=== PATIENT | male | born 1960 | race Caucasian/White ===

== ENCOUNTER → 2020-03-15 15:22 | Outpatient (CLI) | payer OTHER, SELFPAY | PROVIDERS: Family Provider Family Medicine; PCP Student in an Organized Health Care Education/Training Program; Referring Provider Student in an Organized Health Care Education/Training Program; Visit Provider Student in an Organized Health Care Education/Training Program | DX: M75.81 Other shoulder lesions, right shoulder (principal); Z53.20 Procedure and treatment not carried out because of patient's decision for unspecified reasons ==

== ENCOUNTER 2021-08-08 10:59 | Emergency (ER) | payer OTHER, SELFPAY ==
[2021-08-08 11:27] VITALS: BP 171/91; PULSE 63; RESP 18; TEMP 36.1; O2SAT 97; BMI 39.7
--- NOTE | 2021-08-08 11:31 | DI.RAD.S_ITS ---
PROCEDURE: XR CHEST 2V INDICATIONS: +COVID, Increase SOB TECHNIQUE: 2 views of the chest were acquired. COMPARISON: None. FINDINGS: Surgical changes and devices: None. Lungs and pleura: Lungs are clear. No pleural effusions or pneumothorax. Mediastinum: Mediastinal contours are normal. Heart size is normal. Bones and chest wall: No suspicious bony abnormalities. Soft tissues appear unremarkable. IMPRESSION: No acute cardiopulmonary disease process. Dictated by: Shahla Amaya MD, PhD on 08/08/2021 at 12:54 Approved by: Shahla Amaya MD, PhD on 08/08/2021 at 12:54
--- NOTE | 2021-08-08 14:01 | ED_ITS ---
HPI - SOB/Dyspnea General Chief Complaint: Shortness of Breath/Dyspnea Stated Complaint: COVID+ 7 days ago, trouble breathing Time Seen by Provider: 08/08/21 14:01 Source: patient Mode of arrival: Ambulatory History of Present Illness HPI Narrative: 61-year-old male former smoker with history of asthma presents with gradually worsening shortness of breath and dry hacking cough over the past few days. He states that he was diagnosed with COVID about 1 week ago. He denies any fever but has had some chills. He has had no runny nose but a little bit of sore throat. He is not dizzy nor weak or lightheaded. He denies any hemoptysis or productive sputum. He has had no GI symptoms such as nausea, vomiting or diarrhea. He is not vaccinated Related Data Home Medications Medication Instructions Recorded Confirmed hydrochlorothiazide 50 mg tablet 50 mg PO DAILY 07/14/20 04/18/21 losartan 100 mg tablet 100 mg PO DAILY 07/14/20 04/18/21 metoprolol tartrate 100 mg tablet 100 mg PO DAILY 07/14/20 04/18/21 Previous Rx's Medication Instructions Recorded albuterol sulfate 90 mcg/actuation 2 inh INHALATION Q4H PRN #1 each 08/08/21 breath activated powder inhaler benzonatate 200 mg capsule 200 mg PO BID PRN #20 cap 08/08/21 prednisone 10 mg tablet See Rx Instructions .ROUTE 08/08/21 .COMPLEX #30 tab Allergies Allergy/AdvReac Type Severity Reaction Status Date / Time amoxicillin [From AUGMENTIN] Allergy Unknown Verified 08/08/21 11:31 clavulanic acid Allergy Unknown Verified 08/08/21 11:31 [From AUGMENTIN] erythromycin base Allergy Unknown Verified 08/08/21 11:31 [ERYTHROMYCIN BASE] Review of Systems Review of Systems Narrative: GENERAL: See HPI HEENT: See HPI RESPIRATORY: See HPI CARDIOVASCULAR: Denies chest pain, palpitations, orthopnea, edema, GASTROINTESTINAL: Denies nausea, vomiting, abdominal pain, diarrhea, constipation, melena. : Denies dysuria, frequency, incontinence, hematuria, urinary retention. MUSCULOSKELETAL: denies weakness, joint pain, or bony pain SKIN: Denies rash, skin lesions, or other NEUROLOGIC: Denies weakness, headache, numbness, change in speech, confusion, seizures, incoordination. PSYCHIATRIC: No concerning psychosocial issues. 12 point review of systems is negative except for those stated above Patient History Medical History Abscess of anal or rectal region (05/24/03) ADHD, predominantly inattentive type Chronic sinusitis, unspecified (07/06/02) Excessive daytime sleepiness Hypertension Insomnia with sleep apnea, unspecified Joint pain of ankle and foot (09/06/03) Obesity (BMI 30-39.9) Obstructive sleep apnea syndrome Family History Grandfather Hypertension Snoring Diabetes mellitus Father Diabetes mellitus Hypertension Snoring Substance abuse Social History Smoking Status: Former smoker Smoking Status: Former smoker Substance Use Type: does not use Exam Narrative Exam Narrative: GENERAL: [61] year old patient appears stated age. Well-developed patient, in mild distress. HEAD: Atraumatic. Normocephalic. EYES: Pupils equal round and reactive. Extraocular motions intact. No scleral icterus. No injection or drainage. ENT: Nose without bleeding, purulent drainage. Throat without erythema, tonsillar hypertrophy or exudate. Airway patent. NECK: Trachea midline. Non tender CARDIOVASCULAR: Regular rate and rhythm without murmurs, gallops, or rubs. RESPIRATORY: Clear to auscultation. Breath sounds equal bilaterally. No wheezes, rales, or rhonchi. GASTROINTESTINAL: Abdomen soft, non-tender, nondistended. EXTREMITIES: No edema or joint tenderness. BACK: Nontender without deformity or crepitance. No flank tenderness. NEURO: AOx3. SKIN: No rash or erythema of visible areas Initial Vital Signs Initial Vital Signs: Vital Signs Temperature 96.9 F L 08/08/21 11:27 Pulse Rate 63 08/08/21 11:27 Respiratory Rate 18 08/08/21 11:27 Blood Pressure 171/91 H 08/08/21 11:27 Pulse Oximetry 97 08/08/21 11:27 Course Orders Ordered: ED Orders 08/08/21 11:31 XR chest 2V Stat Vital Signs Vital signs: Vital Signs - 8 hr 08/08/21 11:27 Temperature 96.9 F L Pulse Rate 63 Respiratory Rate 18 Blood Pressure 171/91 H Pulse Oximetry 97 MDM - SOB/Dyspnea Imaging Data Chest x-ray: Radiologist's Impression: Launch?[address] [address] XRay Report Signed Patient: Norman Leija MR#: [id number] : 1960 Acct:[id number] Age/Sex: 61 / M Date of Service: 08/08/21 Loc: ED Accession Number: [id number] ?? Procedure: XR chest 2V Ordering Provider: Wilmer Murphy D.O. PROCEDURE:? XR CHEST 2V ? INDICATIONS:? +COVID, Increase SOB ? TECHNIQUE:? 2 views of the chest were acquired.? ? COMPARISON:? None. ? FINDINGS:? ? Surgical changes and devices:? None.? ? Lungs and pleura:? Lungs are clear.? No pleural effusions or pneumothorax.? ? Mediastinum:? Mediastinal contours are normal.? Heart size is normal.? ? Bones and chest wall:? No suspicious bony abnormalities.? Soft tissues appear unremarkable.? ? IMPRESSION:? No acute cardiopulmonary disease process. ? ? Dictated by: Shahla Amaya MD, PhD on 08/08/2021 at 12:54 ? ? Approved by: Shahla Amaya MD, PhD on 08/08/2021 at 12:54 ? [facility] Narrative Medical decision making narrative: Patient has a very reassuring history and physical exam. He shows no signs of significant respiratory distress. He does have some mild wheeze, particularly harsh sound and cough with deep breath suggesting that he would respond to bronchodilators and that he likely has an asthma exacerbation as a consequence of his known COVID. He did not require supplemental oxygen and does not demonstrate need for a significant evaluation and certainly not hospitalization. He has been given extensive return precautions and questions have been answered to his apparent satisfaction Discharge Plan Departure Patient Disposition: Home Clinical Impression: COVID Instructions: DI for COVID-19 (Suspected or Confirmed ) Activity Restrictions/Additional Instructions: *You have been diagnosed with [ COVID-19] *What to do: * per recommendations from the CDC and the [facility] Department of Health * stay home except to get medical care. Restrict activities outside your home, except for getting medical care. Do not go to work, school, or public areas. Avoid using public transportation, ride sharing, or taxis. * separate yourself from other people in your home. * call ahead before visiting your doctor * Wear a facemask * Cover your coughs and sneezes * Clean your hands often * Avoid sharing household items * Clean all high-touch services every day * Monitor your symptoms and seek prompt medical attention if your illness is worsening, particularly with difficulty in breathing. You may discontinue your isolation when: 1. You have been fever-free for at least 24 hours without the use of fever reducing medication, AND 2. Your symptoms are getting better, AND 3. At least 5 days have passed since symptoms first appeared 4. If you have fever, continue to stay home until fever resolves Individuals with laboratory confirmed COVID-19 who have not had any symptoms may discontinue home isolation when at least 5 days have passed since the date of their first COVID-19 diagnostic test and have had no subsequent illness You should notifiy any friends and family that have been in close contact *If up to date on COVID Vaccines, then they do not need to quarantine unless symptoms develop. Get tested on day 5 (or sooner if symptoms develop). Take precautions and watch for symptoms until day 10 *If NOT up to date on COVID Vaccines, then CDC recommends quarantine for at least 5 full days. Wear a well fitted mask at home if you must be around others. If they develop symptoms they should get tested. If they remain asymptomatic they should get tested on day 5. They should take precautions and monitor for symptoms until day 10. We discussed, prescriptions have been sent to [facility] Prescriptions: New benzonatate 200 mg capsule 200 mg PO BID PRN (Reason: cough) Qty: 20 0RF albuterol sulfate 90 mcg/actuation aerosol powdr breath activated 2 inh INHALATION Q4H PRN (Reason: shortness of breath or wheezing) Qty: 1 0RF Rx Instructions: administer with spacer prednisone 10 mg tablet See Rx Instructions .ROUTE .COMPLEX Qty: 30 0RF Rx Instructions: Day 1,2,3: 40mg PO Daily Day 4,5,6: 30mg PO Daily Day 7,8,9: 20mg PO Daily Day 10,11,12: 10mg PO Daily #30 No Action metoprolol tartrate 100 mg tablet 100 mg PO DAILY 0RF hydrochlorothiazide 50 mg tablet 50 mg PO DAILY 0RF losartan 100 mg tablet 100 mg PO DAILY 0RF Referrals: Nohemy Hewitt MD [Primary Care Provider] -
[2021-08-08 14:40] VITALS: BP 158/62; PULSE 89; RESP 16; O2SAT 98
== END 2021-08-08 14:41 | disposition home or self-care (01) ==
PROVIDERS: Emergency Provider Emergency Medicine; PCP Student in an Organized Health Care Education/Training Program
DX: U07.1 COVID-19 (principal)
CPT/HCPCS: 71046; 99283

== ENCOUNTER → 2022-05-25 17:02 | Outpatient (CLI) | payer OTHER, SELFPAY ==
--- NOTE | 2022-05-25 17:04 | DI.RAD.S_ITS ---
PROCEDURE: XR ABDOMEN 1V INDICATIONS: R10.9 TECHNIQUE: One view of the abdomen acquired. COMPARISON: None. FINDINGS: Surgical changes and devices: None. Bowel: Air is seen within the colon. There is relative paucity of bowel gas throughout the remainder of the abdomen. Soft tissues: No suspicious abdominal calcifications. Visualized solid organ contours appear normal in size. Bones: No suspicious bony lesions. Degenerative changes are seen in the spine. IMPRESSION: Nonspecific bowel-gas pattern without definite signs of obstruction. However there is a relative paucity of bowel gas in the small bowel. If symptoms persist, further evaluation could be obtained with CT of the abdomen and pelvis Approved by: Darrin Reyes M.D. on 05/25/2022 at 21:44
== END ==
PROVIDERS: Referring Provider Family Medicine; Visit Provider Family Medicine
DX: R10.9 Unspecified abdominal pain (principal)
CPT/HCPCS: 74018

== ENCOUNTER → 2022-06-26 11:14 | Outpatient (CLI) | payer OTHER, SELFPAY ==
[2022-06-26 11:54] LABS: COVID19 -Nasal RAPID Negative (Negative)
== END ==
PROVIDERS: PCP Internal Medicine; Visit Provider Surgery
DX: Z01.812 Encounter for preprocedural laboratory examination (principal); Z20.822 Contact with and (suspected) exposure to COVID-19
CPT/HCPCS: 87635

== ENCOUNTER 2022-06-26 13:05 | Day surgery (SDC) | payer OTHER, SELFPAY ==
--- NOTE | 2022-06-26 | PATH_ITS ---
[facility] Accession Number: [id number] . 01 Material submitted: . sigmoid colon - SIGMOID COLON POLYP . 01 Diagnosis: Sigmoid Colon, Polyp, Biopsy: Tubular adenoma. [facility] 06/28/2022 1130 Local . 01 Electronically signed: . Misa Bucio MD, Pathologist NPI- [id number] . 01 Gross description: . SIGMOID COLON POLYP: Received in formalin is 1 fragment(s) of urbano, soft tissue measuring 0.7 x 0.5 x 0.2 cm submitted entirely in 1 cassette(s) /CPE 06/27/2022 0856 Local . 01 Pathologist provided ICD-10: D12.5 . 01 CPT . 771557 Specimen Comment: A courtesy copy of this report has been sent to [phone] Performed at: 01 [facility] [address] [place] [address] [id number] MD Miguel Castaneda MD Phone: [phone]
[2022-06-26 14:13] VITALS: BP 172/99; PULSE 92; RESP 16; TEMP 36.6; O2SAT 98; BMI 38.4
[2022-06-26] MEDS: LACTATED RINGERS 1,000 ML 200 ML IV (14:33)
--- NOTE | 2022-06-26 15:09 | PM.HP.1 ---
History of Present Illness History of Present Illness Date Patient Seen: 06/26/22 Time Patient Seen: 15:09 Chief complaint: SCREENING COLONOSCOPY Narrative: The patient presents for colorectal screening. Personal history of colonic polyps, last colonoscopy 5 years ago normal. No personal or family history of colon cancer. On further history denies any recent gastrointestinal symptoms. No nausea, vomiting, abdominal pain, loss of appetite, unexplained weight loss, change in bowel habits, diarrhea, constipation, melena, hematochezia, or bright red blood per rectum. Patient History Medical History Abscess of anal or rectal region (05/24/03) ADHD, predominantly inattentive type Chronic sinusitis, unspecified (07/06/02) Excessive daytime sleepiness Hypertension Insomnia with sleep apnea, unspecified Joint pain of ankle and foot (09/06/03) Obesity (BMI 30-39.9) Obstructive sleep apnea syndrome Family & Social History Family History Grandfather Hypertension Snoring Diabetes mellitus Father Diabetes mellitus Hypertension Snoring Substance abuse Social History: household members none Tobacco & Substance use: Smoking Status Former smoker alcohol intake never Substance Use Type marijuana Meds Home Medications and Allergies Home Medications Medication Instructions Recorded Confirmed Type hydrochlorothiazide 50 mg tablet 50 mg PO DAILY 07/14/20 06/26/22 History losartan 100 mg tablet 100 mg PO DAILY 07/14/20 06/26/22 History metoprolol tartrate 100 mg tablet 100 mg PO DAILY 07/14/20 06/26/22 History albuterol sulfate 90 mcg/actuation 2 inh inhalation Q4H PRN shortness 08/08/21 06/26/22 Rx breath activated powder inhaler of breath or wheezing #1 ea terazosin 1 mg capsule 1 mg DAILY 06/26/22 06/26/22 History Allergies Allergy/AdvReac Type Severity Reaction Status Date / Time amoxicillin [From AUGMENTIN] Allergy Unknown Verified 04/18/22 16:08 clavulanic acid Allergy Unknown Verified 04/18/22 16:08 [From AUGMENTIN] erythromycin base Allergy Unknown Verified 04/18/22 16:08 [ERYTHROMYCIN BASE] Exam Vital Signs (past 8 hours): - 06/26/22 14:13 Temperature 97.8 F Pulse Rate 92 H Respiratory Rate 16 Blood Pressure 172/99 H Pulse Oximetry 98 Oxygen Delivery Method Room Air Oxygen Delivery Method Room Air Narrative Exam Narrative: General adult man alert oriented no acute distress Abdomen soft nontender nondistended Assessment & Plan Assessment & Plan narrative: The patient requires colorectal screening and colonoscopy is recommended. Technical details were discussed. Risks, benefits, alternatives explained. Risks including but not limited to myocardial infarction, aspiration, bleeding, pain, missed lesion, incomplete examination, need for further radiographic studies, colonic perforation, and need for major abdominal surgery were discussed. All questions were answered to their satisfaction, and they are in agreement with this plan. Time Spent With Patient Critical Care time: I spent a total of [] minutes of critical care time on this patient's care today; this time is exclusive of procedural time.
--- NOTE | 2022-06-26 15:10 | PM.OP.COLON ---
Operative Date/Time/Diagnoses Date of procedure: 06/26/22 Time of procedure: 15:11 Pre-op diagnosis: Screening colonoscopy Post-op diagnosis: same Procedure & Clinicians Study performed: Colonoscopy Same procedure as scheduled: Yes Indications: Colorectal screening Surgeon: Chetan Doty Procedure Notes Procedure in detail: The history and physical was performed/updated and the patient is ASA class is 3. The procedure was discussed in detail with the patient. Potential risks complications including infection, bleeding, missed diagnosis, perforation, need for surgery, and were explained. Their questions were answered and informed consent was obtained. Patient was brought to the procedure room and placed standard monitoring equipment. The patient's vital signs were monitored continuously throughout the entire procedure. Prior to starting time-out was performed. The patient was placed in the left lateral recumbent position. Procedural sedation was administered by anesthesia. Examination began with a thorough inspection of the perianal area there was no evidence of fissures, fistulae, external hemorrhoids or cutaneous malignancy. The colonoscopy scope was then placed into the anal canal and was advanced to the cecum, which was identified by the ileocecal valve, the appendiceal orifice and the confluence of the taenia. The scope was then slowly withdrawn examining colon thoroughly in all directions, irrigating it of any residual stool. FINDINGS 1. Sigmoid colon-8 mm pedunculated polyp removed with cold snare in its entirety 2. Remainder of the colon was unremarkable The patient tolerated the procedure well. They will be discharged once criteria are met. The prep was of good/excellent quality. The withdrawl time was 6 minutes. Specimen(s): other (Sigmoid colon polyp) Impression: Colonic polyp Post-procedure Recommendations: High fiber diet Plan for aftercare: Follow-up is dependent on pathology findings Disposition: same day surgery
[2022-06-26 15:34] VITALS: BP 148/88; PULSE 71; RESP 15; TEMP 36.4; O2SAT 96
[2022-06-26 15:39] VITALS: BP 149/92; PULSE 71; RESP 17; O2SAT 96
[2022-06-26 15:43] VITALS: BP 157/89; PULSE 68; RESP 18; O2SAT 94
[2022-06-26 16:00] VITALS: BP 148/93; PULSE 68; RESP 18; O2SAT 99
== END 2022-06-26 16:07 | disposition home or self-care (01) ==
PROVIDERS: PCP Family Medicine; Referring Provider Surgery; Visit Provider Surgery
PROC: 0DJD8ZZ Inspection of Lower Intestinal Tract, Via Natural or Artificial Opening Endoscopic (ICD-10-PCS; CPT 45378; principal; 2022-06-26 14:00)
DX: Z12.11 Encounter for screening for malignant neoplasm of colon (principal); Z20.822 Contact with and (suspected) exposure to COVID-19; G47.33 Obstructive sleep apnea (adult) (pediatric); I10 Essential (primary) hypertension; D12.5 Benign neoplasm of sigmoid colon; Z01.812 Encounter for preprocedural laboratory examination
CPT/HCPCS: 45385; 87635; C9803; J2704

== ENCOUNTER → 2022-10-31 13:01 | Outpatient (CLI) | payer OTHER, SELFPAY ==
--- NOTE | 2022-10-31 13:04 | DI.CT.S_ITS ---
PROCEDURE: CT ABDOMEN PELVIS WO CON INDICATIONS: Unspecified abdominal pain Right lower quadrant TECHNIQUE: After the administration of oral contrast, 5 mm thick sections acquired from the diaphragms to the symphysis. 5 mm coronal and sagittal reformats were performed. For radiation dose reduction, the following was used: automated exposure control, adjustment of mA and/or kV according to patient size. COMPARISON: [facility], , CT KUB, 09/10/2005, 18:45. FINDINGS: ABDOMEN: Lung bases: No pleural effusion Solid organs: Liver is normal in size. Subcentimeter hypodensity in the posterior right hepatic lobe is too small to characterize. Gallbladder is unremarkable . Pancreas is normal in size. Spleen is normal in size. No adrenal nodules. 1.1 cm mildly hyperdense nodule left superior kidney (2/28), indeterminate, in the region of a previously visualized cortical cyst. Nonobstructing 7 mm stone right inferior kidney. No hydroureteronephrosis bilaterally. Peritoneum and bowel: No bowel obstruction. No evidence of acute appendicitis. No free air or substantial free fluid. Nodes and vessels: No retroperitoneal or mesenteric adenopathy by size criteria. Aorta and inferior vena cava are normal in size. Miscellaneous: Tiny fat containing periumbilical hernia. PELVIS: Genitourinary: Bladder wall thickness is normal. Miscellaneous: No adenopathy. Bilateral fat containing inguinal hernias, right larger than left. Bones: Multilevel degenerative change of the visualized spine. IMPRESSION: 1. No definite acute appearing abnormality identified within the abdomen or pelvis. 2. Bilateral fat containing inguinal hernias, right larger than left. 3. Nonobstructing right kidney stone. No hydroureteronephrosis bilaterally. 4. Indeterminate 1.1 cm structure at the left upper kidney, possible hyperdense/proteinaceous cyst, region of cortical scarring, or solid mass. Further evaluation is recommended, could consider renal ultrasound to assess if this finding is cystic versus solid or renal protocol MRI or CT. Dictated by: Darrin Culp M.D. on 10/31/2022 at 18:23 Approved by: Darrin Culp M.D. on 10/31/2022 at 18:31
== END ==
PROVIDERS: PCP Family Medicine; Referring Provider Family Medicine; Visit Provider Family Medicine
DX: K40.20 Bilateral inguinal hernia, without obstruction or gangrene, not specified as recurrent (principal); N20.0 Calculus of kidney; R10.31 Right lower quadrant pain; R10.32 Left lower quadrant pain
CPT/HCPCS: 74176

== ENCOUNTER → 2023-03-13 10:47 | Outpatient (CLI) | payer OTHER, SELFPAY ==
--- NOTE | 2023-03-13 | DI.RAD.S_ITS ---
PROCEDURE: XR LUMBAR SPINE 2-3V INDICATIONS: BACK PAIN TECHNIQUE: 3 views of the lumbar spine were acquired. COMPARISON: [facility], CT, CT ABDOMEN PELVIS WO CON, 10/31/2022, 14:53. FINDINGS: Bones: 5 [id number] vertebrae are present. Right convexity curvature lumbosacral spine centered at L5. No lumbar vertebral body compression fracture identified. Moderate multilevel degenerative changes with disc height loss, endplate spurring, and facet arthropathy. Soft tissues: Overlying bowel gas pattern is normal. No suspicious soft tissue calcifications. IMPRESSION: Multilevel degenerative changes of the lumbar spine. Dictated by: Darrin Culp M.D. on 03/13/2023 at 15:03 Approved by: Darrin Culp M.D. on 03/13/2023 at 15:05
== END ==
PROVIDERS: PCP Family Medicine; Referring Provider Family Medicine; Visit Provider Family Medicine
DX: M47.26 Other spondylosis with radiculopathy, lumbar region (principal); M62.830 Muscle spasm of back
CPT/HCPCS: 72100

== ENCOUNTER → 2023-04-01 12:30 | Outpatient (CLI) | payer OTHER, SELFPAY ==
--- NOTE | 2023-04-01 | DI.MRI.S_ITS ---
PROCEDURE: MR LUMBAR SPINE WO CON INDICATIONS: Radiculopathy, lumbosacral region TECHNIQUE: Noncontrast sagittal T1 spin echo and T2 fast echo, sagittal STIR, and T2 fast spin echo through the lumbar spine. In cases with scoliosis, additional coronal T2 fast spin echo may be performed. COMPARISON: [facility], MR, L-SPINE WITHOUT CONTRAST, 03/30/2013, 16:02. FINDINGS: Image quality: Excellent. Alignment and Curvature: There is normal bony alignment. Bone Marrow: Marrow is of normal overall signal. No acute vertebral body compression fractures. Spinal Cord: Conus medullaris terminates at the L1 level. Visualized cord demonstrates normal signal and size. Paraspinous Soft Tissues: There are bilateral sub cm T2 hypointense cortical lesions within the kidneys. T2 hyperintense cortical lesions are also present suggesting the presence of renal cysts. T12-L1: Normal appearance. L1-L2: Mild disc bulge. Mild facet ligamentum flavum hypertrophy. No canal stenosis. No foraminal stenosis. Findings are unchanged from the MRI dated March 30, 2013. L2-L3: Mild disc desiccation. Broad-based disc bulge. Mild facet and ligamentum flavum hypertrophy. No canal stenosis. Mild right neural foraminal narrowing. Findings are unchanged from the prior study. L3-L4: Mild disc desiccation and height loss. Broad-based disc bulge. Moderate facet ligamentum flavum hypertrophy. There is a new 0.6 x 0.9 x 0.8 cm right paracentral disc protrusion. There is moderate canal stenosis. No neural foraminal stenosis. L4-L5: Moderate disc desiccation and height loss. Broad-based disc bulge. Moderate facet ligamentum flavum hypertrophy. No canal stenosis. Severe left and mild right neural foraminal stenosis. There is slightly increased left foraminal stenosis than on on the 2013 MRI. L5-S1: Disc height is preserved. Severe facet and ligamentum flavum hypertrophy. No canal stenosis. Moderate left foraminal stenosis. No right neural foraminal narrowing. Findings are similar to the 2013 study. IMPRESSION: 1. Right paracentral disc protrusion at L3-4 which is new when compared with the 2013 MRI. There is moderate resultant canal stenosis at this level. 2. Other findings are similar to the 2013 study including severe left foraminal stenosis at L4-5 and moderate left foraminal stenosis at L5-S1. No other significant canal stenosis or foraminal narrowing of the lumbar spine. Dictated by: Amber Vallecillo M.D. on 04/01/2023 at 14:05 Approved by: Amber Vallecillo M.D. on 04/01/2023 at 14:14
== END ==
PROVIDERS: PCP Family Medicine; Referring Provider Family Medicine; Visit Provider Family Medicine
DX: M54.17 Radiculopathy, lumbosacral region (principal); M51.26 Other intervertebral disc displacement, lumbar region; M48.061 Spinal stenosis, lumbar region without neurogenic claudication
CPT/HCPCS: 72148

== ENCOUNTER → 2023-04-16 11:22 | Outpatient (CLI) | payer OTHER, SELFPAY ==
--- NOTE | 2023-04-16 | DI.US.S_ITS ---
PROCEDURE: US RENAL COMPLETE INDICATIONS: BILATERAL RENAL CYSTS TECHNIQUE: Real-time scanning was performed of the kidneys and bladder, with image documentation. COMPARISON: None. FINDINGS: Kidneys: Kidneys are normal in size. Right kidney measures 12.5 cm long; left kidney measures 13.4 cm long. Right renal cortical thickness is 1.5 cm; left renal cortical thickness is 1.8 cm. Renal cortical echotexture is normal. No hydronephrosis . 7 and 6 mm nonobstructing stones are noted in right kidney. 9 and 12 mm nonobstructing stones are also seen in left kidney. No suspicious solid mass lesions. 2 cysts are noted in right kidney measures 1.0 x 1.0 x 0.9 cm and 1.6 x 1.5 x 1.5 cm in size. 4 small cysts are noted in left kidney measures up to 1.9 x 2 x 1.7 cm and 1.9 x 1.8 x 1.9 cm in size. Bladder: Pre-void bladder volume is 534.2 mL. Post-void residual is 0 mL. Pre-void images demonstrate no intraluminal masses or stones. On pre-void images, bilateral ureteral jets are noted with color Doppler interrogation. (Of note, ureteral jets may not be detectable in up to 25% of cases due to insufficient differences in specific gravity between ureteral and bladder urine). Miscellaneous: No free pelvic fluid. IMPRESSION: 1. Bilateral nonobstructing renal calculi and bilateral simple appearing renal cysts as above. No solid appearing renal lesion. No hydronephrosis. 2. Normal appearing urinary bladder. Dictated by: Tutu An M.D. on 04/16/2023 at 21:56 Approved by: Tutu An M.D. on 04/16/2023 at 22:06
== END ==
PROVIDERS: PCP Family Medicine; Referring Provider Family Medicine; Visit Provider Family Medicine
DX: N28.1 Cyst of kidney, acquired (principal); N20.0 Calculus of kidney
CPT/HCPCS: 76770

== ENCOUNTER 2023-05-02 12:52 | Outpatient (CLI) | payer OTHER, SELFPAY ==
[2023-05-02] VITALS (8 sets, daily range): BP systolic 168–204; BP diastolic 80–108; PULSE 56–76; RESP 12–22; TEMP 35.9; O2SAT 97–100
--- NOTE | 2023-05-02 | DI.US.S_ITS ---
PROCEDURE: US PERIPH VENOUS LOW EXTREM LT INDICATIONS: LEFT LOWER EXTREMITY EDEMA TECHNIQUE: Real-time imaging, as well as color and pulse Doppler interrogation, were performed of the lower extremity deep veins from the inguinal ligament to the popliteal fossa, with documentation of the visualized calf veins. COMPARISON: None. FINDINGS: The common femoral, femoral, popliteal, and the visualized calf veins are normally compressible, and free of intraluminal thrombus. Color and pulse Doppler demonstrate normal phasic intraluminal flow. There is normal augmentation response to distal compression maneuver. Complex Emery cyst. IMPRESSION: No evidence of deep vein thrombosis involving the left lower extremity. Dictated by: Shahla Amaya MD, PhD on 05/02/2023 at 16:16 Approved by: Shahla Amaya MD, PhD on 05/02/2023 at 16:16
--- NOTE | 2023-05-02 12:53 | DI.RAD.S_ITS ---
PROCEDURE: PAIN L/S TRANSFORAMINAL INJECT INDICATIONS: SPONDYLOSIS COMPARISON: None. FINDINGS: Fluoroscopic spot filming was performed to verify placement of spinal needles at the right L3-L4 neural foramen level(s), as labeled on the films. Appropriate location(s) of the needle tip(s) was confirmed by injection of iodinated contrast. IMPRESSION: Access needle at the right L3-L4 neural foramen for transforaminal epidural steroid injection. Dictated by: Shahla Amaya MD, PhD on 05/02/2023 at 14:35 Approved by: Shahla Amaya MD, PhD on 05/02/2023 at 14:35
[2023-05-02] MEDS: MIDAZOLAM 2 MG/2 ML VIAL IV (13:43)
[2023-05-02] MEDS: BETAMETHASONE 30 MG/5 ML MDV 6 MG INJ (13:46)
[2023-05-02] MEDS: iopamidoL 15 ML VIAL 3 ML INJ (13:46)
[2023-05-02] MEDS: BUPIVACAINE 0.25% (PF) VIAL 2 ML INJ (13:46)
[2023-05-02] MEDS: DEXAMETHASONE 10 MG/ML VIAL INJ (13:47)
--- NOTE | 2023-05-02 13:54 | PC.NURSE ---
Patient checked in for scheduled lumbar injection. BP elevated 218/100 and 193/78. Patient reports he took all his BP medications last PM. He would usually take some at noon but is trialling them at night time. Significant LLE edema up to the thigh was also noted. Patient reports this has been going on for approximately a week with consistent progression. Denies pain or tenderness to LLE. Reports baseline SOB unworsened. Patient supposedly saw his PCP last week. Dr. Rowland made aware of above prior to procedure. US ordered and will coordinate to get that completed prior to discharge.
--- NOTE | 2023-05-02 13:58 | P.PCN_ITS ---
Date/Time/Diagnoses Date of procedure: 05/02/23 Time of procedure: 13:58 Pre-procedure diagnosis: 1. FORAMINAL STENOSIS WITH LE SYMPTOMS Post-procedure diagnosis: same Procedure Notes Procedure: 1. FLUOROSCOPICALLY GUIDED CONTRAST CONTROLLED TRANSFORAMINAL EPIDURAL STEROID INJECTION - RIGHT L3/4 TFESI Indications: Norman is referred by Dr. Shultz for treatment of Foraminal Stenosis with right LE Symptoms Physician: Rakesh Rowland Total Fluoroscopy time (seconds): 10 Total sedation minutes: 12 Complications: none Procedure in detail & Post-procedure care: FINDINGS Foraminal Nerve Root Compression secondary to disc disease and facet hypertrophy DESCRIPTION OF PROCEDURE Following review of allergy and review of potential side effects and complications, including, but not necessarily limited to, infection, allergic reaction, local tissue breakdown, stroke, temporary or permanent nerve injury, paralysis, and possible , the patient indicated that the patient understood and agreed to proceed. An informed consent document was signed by the patient, witnessed by a nurse, and placed in the patient's chart. Additionally, other treatment options including medications, modalities, and physical therapy were reviewed with the patient. After review of previous anaesthesic history and IV conscious sedation the patient was deemed safe to proceed with today?s procedure with IV conscious sedation as ASA class II designation. Safety time-out was performed to confirm patient ID, procedure to be performed and site of procedure. IV sedation was accomplished with a combination of 2mg of Versed was administered by the RN after DO order, titrated to patient comfort during the course of the procedure while the patient remained responsive to all verbal commands In the prone position following sterile prep and drape of the lumbar region, the right L3/4 posterior neuroforamen was identified fluoroscopically. The skin was anesthetized via a 25-gauge 1.5-inch needle with 1% lidocaine solution. At this point, a 25-gauge 3.5-inch spinal needle was atraumatically introduced and advanced under fluoroscopic guidance through the posterior right L3/4 neuroforamen to approximately the anterior aspect of the canal. Depth was confirmed on lateral view. Following negative aspiration, injection of approximately 1.5 cc of Isovue 200 under live fluoroscopy in the AP view confirmed excellent flow along the nerve root, into the epidural space without vascular or intrathecal uptake observed Radiological data, including multiple fluoroscopic views of the lumbosacral s pine, reveal a spinal needle at the right L3/4 posterior neuroforamen. Subsequent views show flow of contrast material flowing superiorly and inferiorly along the nerve root confirming epidural flow. Subsequently, a test dose of 1.5 cc of 1% lidocaine solution was administered and patient was observed for two minutes for signs or symptoms of complications, including abdominal pain, shortness of breath, bilateral upper or lower extremity weakness, nausea and vomiting, prior to steroid injection. At this point, a total of 2cc or 10mg of dexamethasone and 6mg of betamethasone was injected without incident. The patient tolerated the procedure well without signs or symptoms of complications prior to transfer to the recovery area continued monitoring without incident. The patient was then transferred to the recovery area where they were observed for an appropriate time after the injection. The patient reported a VAS score of 7 prior to the procedure and a post-procedure VAS of 0. POST OP INSTRUCTIONS The patient was provided a Pain Log to continue to record their response to the target-specific procedure prior to follow-up visit with their referring physician. Additionally, specific post-injection care instructions and a contact number to our office were provided if concerns arise regarding possible complications associated with the procedure are suspected.
--- NOTE | 2023-05-02 15:23 | PC.NURSE ---
Upon return from procedure patient with 5/10 pain to RLE, unable to bear weight. 1325 patient finally able to walk comfortably and safely without assistance. Awaiting US of LLE prior to discharge.
== END 2023-05-02 16:13 | disposition home or self-care (01) ==
PROVIDERS: PCP Family Medicine; Referring Provider Physical Medicine & Rehabilitation; Visit Provider Physical Medicine & Rehabilitation
DX: M48.061 Spinal stenosis, lumbar region without neurogenic claudication (principal); M51.16 Intervertebral disc disorders with radiculopathy, lumbar region; M47.26 Other spondylosis with radiculopathy, lumbar region; R60.0 Localized edema
CPT/HCPCS: 64483; 93971; 99152; J0702; J1100; J2250; J3490

== ENCOUNTER 2023-07-30 13:45 | Outpatient (RCR) | payer OTHER, SELFPAY ==
--- NOTE | 2023-06-05 16:00 | PT.OIE ---
Current Diagnoses Lumbago with sciatica, right side (06/05/23) Synovial cyst of popliteal space [Emery], left knee (06/05/23) Abnormal posture (06/05/23) Weakness (06/05/23) Past Medical History (Last Updated 05/02/23 @ 13:38 by Rakesh Rowland DO) Abscess of anal or rectal region (05/24/03) ADHD, predominantly inattentive type Chronic sinusitis, unspecified (07/06/02) Edema of left lower extremity Excessive daytime sleepiness Herniated nucleus pulposus, L3-4 right Hypertension Insomnia with sleep apnea, unspecified Joint pain of ankle and foot (09/06/03) Lumbar stenosis with neurogenic claudication Obesity (BMI 30-39.9) Obstructive sleep apnea syndrome Visit Care Team Role Provider Type Guilherme Shultz MD Attending Provider Physician Family Provider Primary Care Provider Referring Provider Specialty: Family Practice Address: [facility] [place], [facility] Email: [email or web address] Physical Therapy Initial Evaluation PT-OP-A Visit Information Start: 06/05/23 13:01 Freq: Status: Active Protocol: Document 06/05/23 13:09 [facility] (Rec: 06/05/23 13:45 [facility] [id number]) Out-Patient Physical Therapy Visit Information Visit Information Visit Type Initial Evaluation Visit Start Time 13:10 Visit Stop Time 14:00 Total Visit Minutes 50 Visit Number 1 Evaluation Information Evaluation Date 06/05/23 PT-OP-B Current Condition Start: 06/05/23 13:01 Freq: Status: Active Protocol: Document 06/05/23 13:09 [facility] (Rec: 06/05/23 13:45 [facility] [id number]) Current Condition History of Current Condition Onset Date December 2022 Current Complaints right sided back pain, and left knee pain History of Current Condition 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 Onset right sided back pain and reports knee swelling onset same time, was diagnosed as Emery's cyst and was told to wear compression stocking (wearing knee high; patient advised to obtain thigh high compression stocking so compression is over the knee.) Using ice, Ibuprofen, and Gabapentin, some stretching. Has cane but hasn't used. radicular symptoms outside of right leg to lateral right calf. States can't do anything. Prior Treatments and Tests x-ray : multilevel degenerative changes MRI: IMPRESSION: 1. Right paracentral disc protrusion at L3-4 which is new when compared with the 2013 MRI. There is moderate resultant canal stenosis at this level. 2. Other findings are similar to the 2013 study including severe left foraminal stenosis at L4-5 and moderate left foraminal stenosis at L5-S1. No other significant canal stenosis or foraminal narrowing of the lumbar spine. injection in lumbar L34 May 06,not helpful. Future Testing and Treatments Planned Sees Dr. Urbano tomorrow, may discuss surgery. Treatment Goals Patient/Caregiver Goals minimize pain and return to usual activities PT-OP-J Posture/Palpation/Skin Start: 06/05/23 13:01 Freq: Status: Active Protocol: Document 06/05/23 13:09 [facility] (Rec: 06/05/23 13:45 [facility] [id number]) Posture Evaluation Position Standing T-Spine Posture Rotation Right L-Spine Posture Shifted Right Knee Posture (L) Genu Valgus Ankle/Foot Posture (L) Pronated,(R) Pronated Comments Posture Comments hips shifted right, compensates with right sidebending. In sitting, leans to right. Palpation Assessment Location lumbar spine Palpation Findings Soft Tissue Tightness,Spasm, Tenderness left knee Palpation Findings Edema,Tenderness PT-OP-K Range of Motion Start: 06/05/23 13:01 Freq: Status: Active Protocol: Document 06/05/23 13:09 [facility] (Rec: 06/05/23 13:45 [facility] [id number]) Lumbar Spine Range of Motion Lumbar Spine Active ROM Limitations Pain Comments mod dec all motions Hip Goniometric Range of Motion Hip Left Hip ROM WFL No Flexion w/Knee Flexed 110 Straight Leg Raise 45 Extension 0 Abduction 40 Internal Rotation 15 External Rotation 45 Right Flexion w/Knee Flexed 120 Straight Leg Raise 60 Extension 5 Abduction 25 Internal Rotation 20 External Rotation 45 Knee Goniometric Range of Motion Knee Left Knee ROM WFL No Flexion Active (degrees) 100 Extension Active (degrees) 12 Right Knee ROM WFL Yes Ankle and Foot Goniometric Range of Motion Ankle and Foot Left Dorsiflexion with Knee Flexed 5 Dorsiflexion with Knee Extended 0 Plantarflexion 55 Right Ankle/Foot ROM WFL Yes PT-OP-L Special Tests Start: 06/05/23 13:01 Freq: Status: Active Protocol: Document 06/05/23 13:09 [facility] (Rec: 06/05/23 13:45 [facility] [id number]) Special Tests Lumbar Spine Special Tests traction Test Results + dec symptoms right Straight Leg Raise Test Results + right Slump Test Results + Compression Test Results + Knee Special Tests Posterior Draw Test Results - Apley's Compression Test Results - Anterior Draw Test Results - PT-OP-M Strength Start: 06/05/23 13:01 Freq: Status: Active Protocol: Document 06/05/23 13:09 [facility] (Rec: 06/05/23 13:45 [facility] [id number]) Cervical Spine Strength Cervical Spine Manual Muscle Testing Flexion (C1-2) 3+ Fair+ Trunk Strength Trunk Manual Muscle Testing Extension 3+ Fair+ Hip Strength Hip Manual Muscle Testing Left Flexion (L2) 3- Fair- Extension (S1) 3- Fair- Abduction 3- Fair- Adduction 3+ Fair+ External Rotation 3+ Fair+ Internal Rotation 4- Good- Right Flexion (L2) 3+ Fair+ Extension (S1) 3+ Fair+ Abduction 3+ Fair+ Adduction 4- Good- External Rotation 3+ Fair+ Internal Rotation 4- Good- Knee Strength Knee Manual Muscle Testing Left Flexion (S2) 3- Fair- Extension (L3) 4+ Good+ Comments pain on left Right Flexion (S2) 4 Good Extension (L3) 4 Good Ankle/Foot Strength Ankle and Foot Manual Muscle Testing Left Dorsiflexion (L4) 4 Good Plantarflexion (S1) 4- Good- Right Dorsiflexion (L4) 4+ Good+ Plantarflexion (S1) 4+ Good+ Toe Strength Toe Manual Muscle Testing Left Great Toe Flexion 5 Normal Right Great Toe Flexion 4+ Good+ PT-OP-R Modalities Start: 06/05/23 13:01 Freq: Status: Active Protocol: Document 06/05/23 13:09 [facility] (Rec: 06/05/23 13:45 [facility] [id number]) Hot Pack/Cold Pack Treatment Cold Pack Location lumbar spine, left knee Patient Position Hooklying Treatment Duration (minutes) 10 PT-OP-T Assessment and Plan Start: 06/05/23 13:01 Freq: Status: Active Protocol: Document 06/05/23 13:09 [facility] (Rec: 06/05/23 13:45 [facility] [id number]) Physical Therapy Assessment Rehab Potential Rehabilitation Potential Good Evaluation Complexity Number of Personal Factors/Comorbidities 1-2 Number of Body Systems Impaired 3 Clinical Presentation at Evaluation Evolving Impairments Impairments Activity Tolerance,Functional Activities,Pain,Posture Goals Four Impairment weakness Short Term Goal (STG) patient to be instructed in HEP to support therapy activities to improve strength STG Duration 06/24/23 Penitentiary Goal (LTG) Patient to be independent and compliant with HEP and demonstrate improved strenth to at least 4+/5 all LE and trunk muscle groups for improved function Three Impairment Oswestry disability index score 64% Short Term Goal (STG) Decrease PAMELA score to no greater than 50% as measure of improved back health and activity tolerance STG Duration 07/25/23 Sign Poster Goal (LTG) Improve PAMELA score to no greater than 25% as measure of improved back health and acvitity tolerance Two Impairment activity tolerance Impairment LEFS score 36% Short Term Goal (STG) Improve LEFS score to at least 50% as measure of improved activity tolerance STG Duration 07/25/23 Sign Poster Goal (LTG) Improve LEFS score to at least 75% as measure of improved activity tolerance LTG Duration 09/04/23 One Impairment left knee pain and lumbar spine pain with radicular symptoms Impairment 8/10 on pain scale Short Term Goal (STG) decrease pain to no greater than 4/10 with ADL's STG Duration 07/25/23 Penitentiary Goal (LTG) Decrease pain to no greater than 2/10 with all usual activities LTG Duration 09/04/23 Assessment Summary Assessment Patient presents to PT with severe function-limiting low back pain with radicular symptoms into right lateral LE as well as pain left knee due to diagnosed Emery's cyst with significant swelling and loss of strength. His activity level is severely limited at this time. He has severe postural shift, and special tests of vertical spinal compression and SLR positive on the right, and patient reported significant decrease in spine and right LE symptoms with manual lumbar traction. Feel he will benefit from PT to decrease his pain, improve his alignment, provide patient educaiton for back protection and HEP. Physical Therapy Plan Frequency and Duration Frequency of Treatment 2x/Week Duration of treatment (weeks) 8 Plan of Care Start Date 06/05/23 Plan of Care End Date 02/13/23 Therapeutic Interventions Therapeutic Interventions Home Exercise Program,Manual Therapy,Self-Care/Home Management,Sensory Integration ,Soft Tissue Mobilization, Taping,Therapeutic Activities, Therapeutic Exercises Modalities Cold Pack/Ice Massage,Electric Stimulation,Hot Packs, Ultrasound Next Visit Focus/Plan Next Note Type Treatment Note Next Visit Plan Gentle ther ex for core stab, gentle ROM trunk and hips. Manual lumbar traction and consider Ortiz Home Traction unit trial. IFES with ice or heat as indicated.
--- NOTE | 2023-06-05 16:00 | PT.OPPOC ---
Physical, Occupational & Speech Therapy At [facility] Current Diagnoses Lumbago with sciatica, right side (06/05/23) Synovial cyst of popliteal space [Emery], left knee (06/05/23) Abnormal posture (06/05/23) Weakness (06/05/23) Visit Care Team Role Provider Type Guilherme Shultz MD Attending Provider Physician Family Provider Primary Care Provider Referring Provider Specialty: Family Practice Address: [facility] [place], [address] Email: [email or web address] Plan Of Care PT-OP-T Assessment and Plan Start: 06/05/23 13:01 Freq: Status: Active Protocol: Document 06/05/23 13:09 [facility] (Rec: 06/05/23 13:45 [facility] [id number]) Physical Therapy Assessment Rehab Potential Rehabilitation Potential Good Evaluation Complexity Number of Personal Factors/Comorbidities 1-2 Number of Body Systems Impaired 3 Clinical Presentation at Evaluation Evolving Impairments Impairments Activity Tolerance,Functional Activities,Pain,Posture Goals Four Impairment weakness Short Term Goal (STG) patient to be instructed in HEP to support therapy activities to improve strength STG Duration 06/24/23 Aircraft Seat Upholsterer Goal (LTG) Patient to be independent and compliant with HEP and demonstrate improved strenth to at least 4+/5 all LE and trunk muscle groups for improved function Three Impairment Oswestry disability index score 64% Short Term Goal (STG) Decrease PAMELA score to no greater than 50% as measure of improved back health and activity tolerance STG Duration 07/25/23 Aircraft Seat Upholsterer Goal (LTG) Improve PAMELA score to no greater than 25% as measure of improved back health and acvitity tolerance Two Impairment activity tolerance Impairment LEFS score 36% Short Term Goal (STG) Improve LEFS score to at least 50% as measure of improved activity tolerance STG Duration 07/25/23 Aircraft Seat Upholsterer Goal (LTG) Improve LEFS score to at least 75% as measure of improved activity tolerance LTG Duration 09/04/23 One Impairment left knee pain and lumbar spine pain with radicular symptoms Impairment 8/10 on pain scale Short Term Goal (STG) decrease pain to no greater than 4/10 with ADL's STG Duration 07/25/23 Aircraft Seat Upholsterer Goal (LTG) Decrease pain to no greater than 2/10 with all usual activities LTG Duration 09/04/23 Assessment Summary Assessment Patient presents to PT with severe function-limiting low back pain with radicular symptoms into right lateral LE as well as pain left knee due to diagnosed Emery's cyst with significant swelling and loss of strength. His activity level is severely limited at this time. He has severe postural shift, and special tests of vertical spinal compression and SLR positive on the right, and patient reported significant decrease in spine and right LE symptoms with manual lumbar traction. Feel he will benefit from PT to decrease his pain, improve his alignment, provide patient educaiton for back protection and HEP. Physical Therapy Plan Frequency and Duration Frequency of Treatment 2x/Week Duration of treatment (weeks) 8 Plan of Care Start Date 06/05/23 Plan of Care End Date 08/06/22 Therapeutic Interventions Therapeutic Interventions Home Exercise Program,Manual Therapy,Self-Care/Home Management,Sensory Integration ,Soft Tissue Mobilization, Taping,Therapeutic Activities, Therapeutic Exercises Modalities Cold Pack/Ice Massage,Electric Stimulation,Hot Packs, Ultrasound Next Visit Focus/Plan Next Note Type Treatment Note Next Visit Plan Gentle ther ex for core stab, gentle ROM trunk and hips. Manual lumbar traction and consider Ortiz Home Traction unit trial. IFES with ice or heat as indicated. Plan of Care Dates Plan of Care Start Date 06/05/23 Plan of Care End Date 08/06/22 Electronically Signed by: Johnna Edgar, PT 06/10/23 0929 If you are in agreement with this Plan of Care, please return a signed and dated copy. I have reviewed this Plan of Care and certify that the skilled therapy services above are required to meet the patient?s needs. Physician Signature Date Printed Name and Credentials Clinical Instructor Signature Printed Name and Credentials
--- NOTE | 2023-06-12 13:01 | PT.OTN ---
Current Diagnoses Lumbago with sciatica, right side (06/12/23) Synovial cyst of popliteal space [Emery], left knee (06/12/23) Abnormal posture (06/12/23) Weakness (06/12/23) Physical Therapy Treatment Note PT-OP-A Visit Information Start: 06/05/23 13:01 Freq: Status: Active Protocol: Document 06/12/23 13:01 [facility] (Rec: 06/12/23 13:47 [facility] [id number]) Out-Patient Physical Therapy Visit Information Visit Information Visit Type Initial Evaluation Visit Note Saw Dr. Urbano last Saturday, now has appointment with surgeon July 18 in [place]. 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 Onset right sided back pain and reports knee swelling onset same time, was diagnosed as Emery's cyst and was told to wear compression stocking (wearing knee high; patient advised to obtain thigh high compression stocking so compression is over the knee.) Using ice, Ibuprofen, and Gabapentin, some stretching. Has cane but hasn't used. radicular symptoms outside of right leg to lateral right calf. States can't do anything. Prior Treatments and Tests x-ray : multilevel degenerative changes MRI: IMPRESSION: 1. Right paracentral disc protrusion at L3-4 which is new when compared with the 2013 MRI. There is moderate resultant canal stenosis at this level. 2. Other findings are similar to the 2013 study including severe left foraminal stenosis at L4-5 and moderate left foraminal stenosis at L5-S1. No other significant canal stenosis or foraminal narrowing of the lumbar spine. injection in lumbar L34 May 06,not helpful. Future Testing and Treatments Planned Sees Dr. Urbano tomorrow, may discuss surgery. Treatment Goals Patient/Caregiver Goals minimize pain and return to usual activities PT-OP-J Posture/Palpation/Skin Start: 06/05/23 13:01 Freq: Status: Active Protocol: Document 06/05/23 13:09 [facility] (Rec: 06/05/23 13:45 [facility] [id number]) Posture Evaluation Position Standing T-Spine Posture Rotation Right L-Spine Posture Shifted Right Knee Posture (L) Genu Valgus Ankle/Foot Posture (L) Pronated,(R) Pronated Comments Posture Comments hips shifted right, compensates with right sidebending. In sitting, leans to right. Palpation Assessment Location lumbar spine Palpation Findings Soft Tissue Tightness,Spasm, Tenderness left knee Palpation Findings Edema,Tenderness PT-OP-K Range of Motion Start: 06/05/23 13:01 Freq: Status: Active Protocol: Document 06/05/23 13:09 [facility] (Rec: 06/05/23 13:45 [facility] [id number]) Lumbar Spine Range of Motion Lumbar Spine Active ROM Limitations Pain Comments mod dec all motions Hip Goniometric Range of Motion Hip Left Hip ROM WFL No Flexion w/Knee Flexed 110 Straight Leg Raise 45 Extension 0 Abduction 40 Internal Rotation 15 External Rotation 45 Right Flexion w/Knee Flexed 120 Straight Leg Raise 60 Extension 5 Abduction 25 Internal Rotation 20 External Rotation 45 Knee Goniometric Range of Motion Knee Left Knee ROM WFL No Flexion Active (degrees) 100 Extension Active (degrees) 12 Right Knee ROM WFL Yes Ankle and Foot Goniometric Range of Motion Ankle and Foot Left Dorsiflexion with Knee Flexed 5 Dorsiflexion with Knee Extended 0 Plantarflexion 55 Right Ankle/Foot ROM WFL Yes PT-OP-L Special Tests Start: 06/05/23 13:01 Freq: Status: Active Protocol: Document 06/05/23 13:09 [facility] (Rec: 06/05/23 13:45 [facility] [id number]) Special Tests Lumbar Spine Special Tests traction Test Results + dec symptoms right Straight Leg Raise Test Results + right Slump Test Results + Compression Test Results + Knee Special Tests Posterior Draw Test Results - Apley's Compression Test Results - Anterior Draw Test Results - PT-OP-M Strength Start: 06/05/23 13:01 Freq: Status: Active Protocol: Document 06/05/23 13:09 [facility] (Rec: 06/05/23 13:45 [facility] [id number]) Cervical Spine Strength Cervical Spine Manual Muscle Testing Flexion (C1-2) 3+ Fair+ Trunk Strength Trunk Manual Muscle Testing Extension 3+ Fair+ Hip Strength Hip Manual Muscle Testing Left Flexion (L2) 3- Fair- Extension (S1) 3- Fair- Abduction 3- Fair- Adduction 3+ Fair+ External Rotation 3+ Fair+ Internal Rotation 4- Good- Right Flexion (L2) 3+ Fair+ Extension (S1) 3+ Fair+ Abduction 3+ Fair+ Adduction 4- Good- External Rotation 3+ Fair+ Internal Rotation 4- Good- Knee Strength Knee Manual Muscle Testing Left Flexion (S2) 3- Fair- Extension (L3) 4+ Good+ Comments pain on left Right Flexion (S2) 4 Good Extension (L3) 4 Good Ankle/Foot Strength Ankle and Foot Manual Muscle Testing Left Dorsiflexion (L4) 4 Good Plantarflexion (S1) 4- Good- Right Dorsiflexion (L4) 4+ Good+ Plantarflexion (S1) 4+ Good+ Toe Strength Toe Manual Muscle Testing Left Great Toe Flexion 5 Normal Right Great Toe Flexion 4+ Good+ PT-OP-Q Treatments Start: 06/05/23 13:01 Freq: Status: Active Protocol: Document 06/12/23 13:01 [facility] (Rec: 06/13/23 09:49 [facility] [id number]) Cardio Equipment Recumbent Stepper (Sci-Fit) Other REFUSED DUE TO PRIOR BAD EXPERIENCE AT DIFFERENT PT CLINIC Manual Therapy Treatment Manual Traction Lumbar Reps/Duration 10 min Comments strap Self-Care/Home Management Treatment Education Other Education self spinal decompression in chair obtain different compression stocking left LE: 20-30 mm Hg closed toe thigh high lymphatic massage left LE PT-OP-R Modalities Start: 06/05/23 13:01 Freq: Status: Active Protocol: Document 06/12/23 13:01 [facility] (Rec: 06/12/23 13:47 [facility] [id number]) Hot Pack/Cold Pack Treatment Cold Pack Location lumbar spine, left knee Patient Position Hooklying Treatment Duration (minutes) 10 Spinal Traction Traction Treatment Lumbar Method Static Patient Position Hooklying Force Applied (Pounds) 50 Traction Treatment Comment [facility] [facility]. ice after PT-OP-T Assessment and Plan Start: 06/05/23 13:01 Freq: Status: Active Protocol: Document 06/12/23 13:01 [facility] (Rec: 12/20/23 13:47 [facility] [id number]) Physical Therapy Assessment Impairments Impairments Activity Tolerance,Functional Activities,Pain,Posture Goals Four Impairment weakness Short Term Goal (STG) patient to be instructed in HEP to support therapy activities to improve strength STG Duration 06/24/23 Skilled Nursing Goal (LTG) Patient to be independent and compliant with HEP and demonstrate improved strenth to at least 4+/5 all LE and trunk muscle groups for improved function LTG Duration 09/04/23 Three Impairment Oswestry disability index score 64% Short Term Goal (STG) Decrease PAMELA score to no greater than 50% as measure of improved back health and activity tolerance STG Duration 07/25/23 Ground Water Contractor Goal (LTG) Improve PAMELA score to no greater than 25% as measure of improved back health and acvitity tolerance LTG Duration 09/04/23 Two Impairment activity tolerance Impairment LEFS score 36% Short Term Goal (STG) Improve LEFS score to at least 50% as measure of improved activity tolerance STG Duration 07/25/23 Ground Water Contractor Goal (LTG) Improve LEFS score to at least 75% as measure of improved activity tolerance LTG Duration 09/04/23 One Impairment left knee pain and lumbar spine pain with radicular symptoms Impairment 8/10 on pain scale Short Term Goal (STG) decrease pain to no greater than 4/10 with ADL's STG Duration 07/25/23 Skilled Nursing Goal (LTG) Decrease pain to no greater than 2/10 with all usual activities LTG Duration 09/04/23 Assessment Summary Assessment Patient reports decreased pain with manual traction, trial mechanical traction today with [employer] [facility] [employer] [facility] followed by ice. Patient obtained wrong kine of compression stocking (from ankle to hip with no foot coverage); instructed to obtain thigh high 20-30 mm Hg with closed toe; patient to order. He was also instructed in basic lymphatic massage for dec left LE. Encouraged to try water walking at pool also for decompression of spine and instructed in spinal decompression in chair with arms. Patient demonstrated good understanding of all. Physical Therapy Plan Frequency and Duration Frequency of Treatment 2x/Week Duration of treatment (weeks) 8 Plan of Care Start Date 06/05/23 Plan of Care End Date 08/06/23 Therapeutic Interventions Therapeutic Interventions Home Exercise Program,Manual Therapy,Self-Care/Home Management,Sensory Integration ,Soft Tissue Mobilization, Taping,Therapeutic Activities, Therapeutic Exercises Modalities Cold Pack/Ice Massage,Electric Stimulation,Hot Packs, Ultrasound Next Visit Focus/Plan Next Note Type Treatment Note Next Visit Plan Evaluate response to today's session, assess fit of new compression stocking if obtains. Gentle ther ex for spinal and hip mobility and stab. Cont with either manual or methanical traction depending on patient benefit with possible inc pull on mechanical. IFES with ice.
--- NOTE | 2023-06-12 13:01 | PT.OPPOC ---
Physical, Occupational & Speech Therapy At [facility] Current Diagnoses Lumbago with sciatica, right side (06/12/23) Synovial cyst of popliteal space [Emery], left knee (06/12/23) Abnormal posture (06/12/23) Weakness (06/12/23) Visit Care Team Role Provider Type Guilherme Shultz MD Attending Provider Physician Family Provider Primary Care Provider Referring Provider Specialty: Family Practice Address: [facility] [place], [address] Email: [email or web address] Plan Of Care PT-OP-T Assessment and Plan Start: 06/05/23 13:01 Freq: Status: Active Protocol: Document 06/05/23 13:09 [facility] (Rec: 06/05/23 13:45 [facility] [id number]) Physical Therapy Assessment Rehab Potential Rehabilitation Potential Good Evaluation Complexity Number of Personal Factors/Comorbidities 1-2 Number of Body Systems Impaired 3 Clinical Presentation at Evaluation Evolving Impairments Impairments Activity Tolerance,Functional Activities,Pain,Posture Goals Four Impairment weakness Short Term Goal (STG) patient to be instructed in HEP to support therapy activities to improve strength STG Duration 06/24/23 Hat Brusher Machine Goal (LTG) Patient to be independent and compliant with HEP and demonstrate improved strenth to at least 4+/5 all LE and trunk muscle groups for improved function LTG Duration 09/04/23 Three Impairment Oswestry disability index score 64% Short Term Goal (STG) Decrease PAMELA score to no greater than 50% as measure of improved back health and activity tolerance STG Duration 07/25/23 Snf Goal (LTG) Improve PAMELA score to no greater than 25% as measure of improved back health and acvitity tolerance LTG Duration 09/04/23 Two Impairment activity tolerance Impairment LEFS score 36% Short Term Goal (STG) Improve LEFS score to at least 50% as measure of improved activity tolerance STG Duration 07/25/23 Snf Goal (LTG) Improve LEFS score to at least 75% as measure of improved activity tolerance LTG Duration 09/04/23 One Impairment left knee pain and lumbar spine pain with radicular symptoms Impairment 8/10 on pain scale Short Term Goal (STG) decrease pain to no greater than 4/10 with ADL's STG Duration 07/25/23 Hat Brusher Machine Goal (LTG) Decrease pain to no greater than 2/10 with all usual activities LTG Duration 09/04/23 Assessment Summary Assessment Patient presents to PT with severe function-limiting low back pain with radicular symptoms into right lateral LE as well as pain left knee due to diagnosed Emery's cyst with significant swelling and loss of strength. His activity level is severely limited at this time. He has severe postural shift, and special tests of vertical spinal compression and SLR positive on the right, and patient reported significant decrease in spine and right LE symptoms with manual lumbar traction. Feel he will benefit from PT to decrease his pain, improve his alignment, provide patient educaiton for back protection and HEP. Physical Therapy Plan Frequency and Duration Frequency of Treatment 2x/Week Duration of treatment (weeks) 8 Plan of Care Start Date 06/05/23 Plan of Care End Date 08/06/23 Therapeutic Interventions Therapeutic Interventions Home Exercise Program,Manual Therapy,Self-Care/Home Management,Sensory Integration ,Soft Tissue Mobilization, Taping,Therapeutic Activities, Therapeutic Exercises Modalities Cold Pack/Ice Massage,Electric Stimulation,Hot Packs, Ultrasound Next Visit Focus/Plan Next Note Type Treatment Note Next Visit Plan Gentle ther ex for core stab, gentle ROM trunk and hips. Manual lumbar traction and consider [facility] [employer] [facility] trial. IFES with ice or heat as indicated. Plan of Care Dates Plan of Care Start Date 06/05/23 Plan of Care End Date 08/06/23 Electronically Signed by: Johnna Edgar, PT 06/12/23 0043 If you are in agreement with this Plan of Care, please return a signed and dated copy. I have reviewed this Plan of Care and certify that the skilled therapy services above are required to meet the patient?s needs. Physician Signature Date Printed Name and Credentials Clinical Instructor Signature Printed Name and Credentials
--- NOTE | 2023-06-27 16:16 | PT-OP ANOTE ---
Phone call to patient due to cancellation of appointment. States his pain has just been out of control in his back, pain meds wear off after [address] Urbano yesterday, is going to try different medicaiton. PT enouraged trial water walking and deep water hanging for decompression as previously discussed, and that we can modify PT treatment as indicated next week. Patient in agreement.
--- NOTE | 2023-07-10 10:19 | PT-OP ANOTE ---
cancelled due to ill
--- NOTE | 2023-07-15 09:09 | PT-OP ANOTE ---
cancelled appt due to sick
--- NOTE | 2023-07-31 15:41 | PT.OPDS ---
Current Diagnoses Lumbago with sciatica, right side (07/30/23) Synovial cyst of popliteal space [Emery], left knee (07/30/23) Abnormal posture (07/30/23) Weakness (07/30/23) Visit Care Team Role Provider Type Guilherme Shultz MD Attending Provider Physician Family Provider Primary Care Provider Referring Provider Specialty: Family Practice Address: [facility] [place], [facility] Email: 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 Onset right sided back pain and reports knee swelling onset same time, was diagnosed as Emery's cyst and was told to wear compression stocking (wearing knee high; patient advised to obtain thigh high compression stocking so compression is over the knee.) Using ice, Ibuprofen, and Gabapentin, some stretching. Has cane but hasn't used. radicular symptoms outside of right leg to lateral right calf. States can't do anything. Prior Treatments and Tests x-ray : multilevel degenerative changes MRI: IMPRESSION: 1. Right paracentral disc protrusion at L3-4 which is new when compared with the 2013 MRI. There is moderate resultant canal stenosis at this level. 2. Other findings are similar to the 2013 study including severe left foraminal stenosis at L4-5 and moderate left foraminal stenosis at L5-S1. No other significant canal stenosis or foraminal narrowing of the lumbar spine. injection in lumbar L34 May 06,not helpful. Future Testing and Treatments Planned Sees Dr. Urbano tomorrow, may discuss surgery. Treatment Goals Patient/Caregiver Goals minimize pain and return to usual activities PT-OP-C Subjective Start: 06/05/23 13:01 Freq: Status: Active Protocol: Document 07/26/23 12:56 [facility] (Rec: 07/26/23 13:51 [facility] [id number]) OP-PT Subjective Patient Comments Patient Comments Zach reports he will be having back surgery for the L3 -4 herniation and insurance authorized it today. He got the correct compression stocking for L leg and it helped so much he stopped wearing the stocking because there's only a bit of L leg swelling. The pain has increased a lot. He was in excruciating pain the day after last PT. PT-OP-J Posture/Palpation/Skin Start: 06/05/23 13:01 Freq: Status: Active Protocol: Document 06/05/23 13:09 [facility] (Rec: 06/05/23 13:45 [facility] [id number]) Posture Evaluation Position Standing T-Spine Posture Rotation Right L-Spine Posture Shifted Right Knee Posture (L) Genu Valgus Ankle/Foot Posture (L) Pronated,(R) Pronated Comments Posture Comments hips shifted right, compensates with right sidebending. In sitting, leans to right. Palpation Assessment Location lumbar spine Palpation Findings Soft Tissue Tightness,Spasm, Tenderness left knee Palpation Findings Edema,Tenderness PT-OP-K Range of Motion Start: 06/05/23 13:01 Freq: Status: Active Protocol: Document 06/05/23 13:09 [facility] (Rec: 06/05/23 13:45 [facility] [id number]) Lumbar Spine Range of Motion Lumbar Spine Active ROM Limitations Pain Comments mod dec all motions Hip Goniometric Range of Motion Hip Left Hip ROM WFL No Flexion w/Knee Flexed 110 Straight Leg Raise 45 Extension 0 Abduction 40 Internal Rotation 15 External Rotation 45 Right Flexion w/Knee Flexed 120 Straight Leg Raise 60 Extension 5 Abduction 25 Internal Rotation 20 External Rotation 45 Knee Goniometric Range of Motion Knee Left Knee ROM WFL No Flexion Active (degrees) 100 Extension Active (degrees) 12 Right Knee ROM WFL Yes Ankle and Foot Goniometric Range of Motion Ankle and Foot Left Dorsiflexion with Knee Flexed 5 Dorsiflexion with Knee Extended 0 Plantarflexion 55 Right Ankle/Foot ROM WFL Yes PT-OP-L Special Tests Start: 06/05/23 13:01 Freq: Status: Active Protocol: Document 06/05/23 13:09 [facility] (Rec: 06/05/23 13:45 [facility] [id number]) Special Tests Lumbar Spine Special Tests traction Test Results + dec symptoms right Straight Leg Raise Test Results + right Slump Test Results + Compression Test Results + Knee Special Tests Posterior Draw Test Results - Apley's Compression Test Results - Anterior Draw Test Results - PT-OP-M Strength Start: 06/05/23 13:01 Freq: Status: Active Protocol: Document 06/05/23 13:09 [facility] (Rec: 06/05/23 13:45 [facility] [id number]) Cervical Spine Strength Cervical Spine Manual Muscle Testing Flexion (C1-2) 3+ Fair+ Trunk Strength Trunk Manual Muscle Testing Extension 3+ Fair+ Hip Strength Hip Manual Muscle Testing Left Flexion (L2) 3- Fair- Extension (S1) 3- Fair- Abduction 3- Fair- Adduction 3+ Fair+ External Rotation 3+ Fair+ Internal Rotation 4- Good- Right Flexion (L2) 3+ Fair+ Extension (S1) 3+ Fair+ Abduction 3+ Fair+ Adduction 4- Good- External Rotation 3+ Fair+ Internal Rotation 4- Good- Knee Strength Knee Manual Muscle Testing Left Flexion (S2) 3- Fair- Extension (L3) 4+ Good+ Comments pain on left Right Flexion (S2) 4 Good Extension (L3) 4 Good Ankle/Foot Strength Ankle and Foot Manual Muscle Testing Left Dorsiflexion (L4) 4 Good Plantarflexion (S1) 4- Good- Right Dorsiflexion (L4) 4+ Good+ Plantarflexion (S1) 4+ Good+ Toe Strength Toe Manual Muscle Testing Left Great Toe Flexion 5 Normal Right Great Toe Flexion 4+ Good+ PT-OP-T Assessment and Plan Start: 06/05/23 13:01 Freq: Status: Active Protocol: Document 07/31/23 15:39 [facility] (Rec: 07/31/23 15:41 [facility] [id number]) Physical Therapy Plan Discharge Physical Therapy Discharge Comments patient cancelled appt for tomorrow via text. Is last scheduled appt. Has been tolerating PT poorly and is going to have back surgery. Will discharge from PT at this time.
== END 2023-08-06 15:00 | disposition home or self-care (01) ==
LOC: PHYS 13:45
PROVIDERS: Family Provider Family Medicine; PCP Family Medicine; Referring Provider Family Medicine; Visit Provider Family Medicine
DX: M71.22 Synovial cyst of popliteal space [Baker], left knee (principal); M54.41 Lumbago with sciatica, right side; R29.3 Abnormal posture; R53.1 Weakness
CPT/HCPCS: 97012; 97110; 97140; 97162; 97530; 97535

== ENCOUNTER 2023-12-29 08:55 | Observation (INO) | payer OTHER, SELFPAY ==
[2023-12-29] VITALS (26 sets, daily range): BP systolic 99–169; BP diastolic 52–77; PULSE 62–82; RESP 11–22; TEMP 36.8–37.2; O2SAT 93–97; BMI 33.3
--- NOTE | 2023-12-29 09:03 | ED.GENADULT ---
HPI - General Adult General Chief complaint: Back Pain/Injury Stated complaint: Back Pain Time Seen by Provider: 12/29/23 08:56 Source: patient and EMS Mode of arrival: EMS Limitations: no limitations History of Present Illness HPI narrative: Patient is a 63-year-old male. Has a longstanding history of lower back discomfort. Had lower back surgery in his upper lumbar region in August of this year. States that 2 days ago he was in a long car ride which aggravated his back somewhat and then yesterday was riding on his riding lawnmower hour. To stand up and move. The symptoms have continued. He has been taken ibuprofen and some oxycodone. No urinary symptoms. No change in bowel habits. He did receive 100 mcg of fentanyl by EMS prior to arrival. Related Data Home Medications Medication Instructions Recorded Confirmed hydrochlorothiazide 50 mg tablet 50 mg PO DAILY 07/14/20 04/03/23 losartan 100 mg tablet 100 mg PO DAILY 07/14/20 04/03/23 metoprolol tartrate 100 mg tablet 100 mg PO DAILY 07/14/20 04/03/23 terazosin 1 mg capsule 1 mg DAILY 06/26/22 04/03/23 amlodipine 5 mg tablet 5 mg PO DAILY 04/03/23 04/03/23 Previous Rx's Medication Instructions Recorded albuterol sulfate 90 mcg/actuation 2 inh inhalation Q4H PRN shortness 08/08/21 breath activated powder inhaler of breath or wheezing #1 ea gabapentin 300 mg capsule 300 mg PO .COMPLEX #90 caps 04/03/23 methylprednisolone 4 mg tablets in See Rx Instructions PO PER PKG DIR 04/03/23 a dose pack (Medrol (Paul)) radiculopathy #21 ea Allergies Allergy/AdvReac Type Severity Reaction Status Date / Time amoxicillin [From AUGMENTIN] Allergy Unknown Verified 04/03/23 16:03 clavulanic acid Allergy Unknown Verified 04/03/23 16:03 [From AUGMENTIN] erythromycin base Allergy Unknown Verified 04/03/23 16:03 [ERYTHROMYCIN BASE] Review of Systems Gastrointestinal Gastrointestinal: Reports system reviewed and no additional complaints, except as documented Genitourinary Genitourinary: Reports system reviewed and no additional complaints, except as documented Musculoskeletal Musculoskeletal: Reports system reviewed and no additional complaints, except as documented Integumentary/Breasts Skin/Breast: Reports system reviewed and no additional complaints, except as documented Neurologic Neurologic: Reports system reviewed and no additional complaints, except as documented Patient History Medical History Edema of left lower extremity Lumbar stenosis with neurogenic claudication Herniated nucleus pulposus, L3-4 right ADHD, predominantly inattentive type Obstructive sleep apnea syndrome Obesity (BMI 30-39.9) Insomnia with sleep apnea, unspecified Excessive daytime sleepiness Hypertension Abscess of anal or rectal region (05/24/03) Chronic sinusitis, unspecified (07/06/02) Joint pain of ankle and foot (09/06/03) Family History Grandfather Hypertension Snoring Diabetes mellitus Father Diabetes mellitus Hypertension Snoring Substance abuse Social History marital status: unmarried,single household members: none lives independently: Yes occupational status: previously employed Smoking Status: Former smoker alcohol intake: never Smoking Status: Former smoker Substance Use Type: marijuana Exam Initial Vital Signs Initial Vital Signs: Vital Signs Temperature 99 F 12/29/23 09:01 Pulse Rate 79 12/29/23 09:01 Respiratory Rate 20 12/29/23 09:01 Blood Pressure 136/62 12/29/23 09:01 Pulse Oximetry 96 12/29/23 09:01 Oxygen Delivery Method Room Air 12/29/23 09:01 HENMT Head: normal to inspection and normocephalic Resp Effort & Inspection: normal respiratory effort Back/Spine/Pelvis Other: Discomfort to palpation midline and paraspinal region of the lower lumbar. Skin General: no rashes or lesions noted Course Orders Ordered: ED Orders 12/29/23 11:54 XR lumbar spine 2-3V Stat 12/29/23 15:15 Consult to Physician Stat Discontinued Medications Cyclobenzaprine HCl (Cyclobenzaprine 10 Mg Tablet) 10 mg PO NOW ONE Stop: 12/29/23 10:14 Last Admin: 12/29/23 10:47 Dose: 10 mg Documented By: MAREN Diazepam (Diazepam 2 Mg Tablet) 2 mg PO NOW ONE Stop: 12/29/23 14:10 Last Admin: 12/29/23 14:26 Dose: 2 mg Documented By: MITCH Hydromorphone HCl (Hydromorphone 1 Mg Inj) 1 mg IV NOW ONE Stop: 12/29/23 08:59 Last Admin: 12/29/23 09:10 Dose: 1 mg Documented By: MAREN Hydromorphone HCl (Hydromorphone 0.5 Mg Inj) 0.5 mg IV NOW ONE Stop: 12/29/23 10:14 Last Admin: 12/29/23 10:47 Dose: 0.5 mg Documented By: MAREN Hydromorphone HCl (Hydromorphone 0.5 Mg Inj) 0.5 mg IV NOW ONE Stop: 12/29/23 12:02 Last Admin: 12/29/23 12:17 Dose: 0.5 mg Documented By: MITCH Hydromorphone HCl (Hydromorphone 1 Mg Inj) 1 mg IV NOW ONE Stop: 12/29/23 14:07 Last Admin: 12/29/23 14:26 Dose: 1 mg Documented By: MITCH Ketorolac Tromethamine (Ketorolac 30 Mg/Ml Vial) 30 mg IV NOW ONE Stop: 12/29/23 09:00 Last Admin: 12/29/23 09:11 Dose: 30 mg Documented By: MAREN Methylprednisolone (Methylprednisolone 125 Mg/2 Ml Vial) 125 mg IV NOW ONE Stop: 12/29/23 10:14 Last Admin: 12/29/23 10:47 Dose: 125 mg Documented By: MAREN Vital Signs Vital signs: Vital Signs - 8 hr 12/29/23 09:01 12/29/23 09:02 12/29/23 09:30 Temperature 99 F Pulse Rate 79 76 66 Respiratory Rate 20 13 12 Blood Pressure 136/62 Pulse Oximetry 96 96 94 Oxygen Delivery Method Room Air 12/29/23 09:30 12/29/23 10:00 12/29/23 10:00 Temperature Pulse Rate 65 Respiratory Rate 19 Blood Pressure 117/57 L 112/59 L Pulse Oximetry 94 Oxygen Delivery Method 12/29/23 10:30 12/29/23 10:31 12/29/23 10:31 Temperature Pulse Rate 62 64 Respiratory Rate 11 L 12 Blood Pressure 107/55 L Pulse Oximetry 95 94 Oxygen Delivery Method 12/29/23 11:00 12/29/23 11:00 12/29/23 11:30 Temperature Pulse Rate 62 Respiratory Rate 11 L Blood Pressure 99/53 L 109/58 L Pulse Oximetry 95 Oxygen Delivery Method 12/29/23 11:30 12/29/23 12:15 12/29/23 12:30 Temperature Pulse Rate 69 72 64 Respiratory Rate 22 Blood Pressure Pulse Oximetry 97 96 94 Oxygen Delivery Method 12/29/23 13:00 12/29/23 13:30 12/29/23 13:57 Temperature Pulse Rate 65 65 73 Respiratory Rate 14 Blood Pressure Pulse Oximetry 93 94 96 Oxygen Delivery Method 12/29/23 13:57 12/29/23 14:00 12/29/23 14:00 Temperature Pulse Rate 72 Respiratory Rate Blood Pressure 169/77 H 151/67 H Pulse Oximetry 96 Oxygen Delivery Method 12/29/23 14:30 12/29/23 14:30 Temperature Pulse Rate 71 Respiratory Rate Blood Pressure 143/70 H Pulse Oximetry 96 Oxygen Delivery Method Medical Decision Making Imaging Data lumbar spine X-ray: Radiologist's Impression: PROCEDURE: XR LUMBAR SPINE 2-3V INDICATIONS: LBP TECHNIQUE: 3 views of the lumbar spine were acquired. COMPARISON: [facility], , XR LUMBAR SPINE 2-3V, 03/13/2023, 11:03. FINDINGS: Bones: 5 [id number] vertebrae are present. There is normal bony alignment. No vertebral body compression fractures. No suspicious bony lesions. Multilevel degenerative disc and foraminal narrowing most severe from L3-4 through L5-S1. Overall appearance is relatively unchanged compared to prior exam. Small anterior osteophytes are present. Soft tissues: Overlying bowel gas pattern is normal. No suspicious soft tissue calcifications. IMPRESSION: No acute bony abnormality. Stable appearance of multilevel degenerative change. MDM Narrative Medical decision making narrative: Patient arrives with worsening of his chronic back pain. 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 X-ray shows no fractures. He has no radicular symptoms. Low suspicion for cauda equina, fracture, hematoma, abscess. After 3 mg of Dilaudid, steroids, Flexeril, Valium, Toradol patient is still not able to stand and only slightly able to sit at bedside. Tried to provide reassurance to the patient that his symptoms should improve with time and with medications but patient was still unable to stand. Discussed the case with Dr. Ramos who is on-call for the patient's primary doctor will admit for observation and physical therapy and continue pain control. Discharge Plan Departure Patient Disposition: Admitted as Observation Clinical Impression: Intractable back pain Admit Date/Time: 12/29/23 15:20 Admit Provider: Haylie Ramos
[2023-12-29] MEDS: HYDROMORPHONE 1 MG INJ IV ×2 (09:10→14:26)
[2023-12-29] MEDS: KETOROLAC 30 MG/ML VIAL IV (09:11)
[2023-12-29] MEDS: HYDROMORPHONE 0.5 MG INJ IV ×4 (10:47→23:45)
[2023-12-29] MEDS: methylPREDNISolone 125 MG/2 ML VIAL IV (10:47)
[2023-12-29] MEDS: CYCLOBENZAPRINE 10 MG TABLET PO ×2 (10:47→21:00)
--- NOTE | 2023-12-29 11:54 | DI.RAD.S_ITS ---
PROCEDURE: XR LUMBAR SPINE 2-3V INDICATIONS: LBP TECHNIQUE: 3 views of the lumbar spine were acquired. COMPARISON: [facility], CR, XR LUMBAR SPINE 2-3V, 03/13/2023, 11:03. FINDINGS: Bones: 5 [id number]-pypmycr vertebrae are present. There is normal bony alignment. No vertebral body compression fractures. No suspicious bony lesions. Multilevel degenerative disc and foraminal narrowing most severe from L3-4 through L5-S1. Overall appearance is relatively unchanged compared to prior exam. Small anterior osteophytes are present. Soft tissues: Overlying bowel gas pattern is normal. No suspicious soft tissue calcifications. IMPRESSION: No acute bony abnormality. Stable appearance of multilevel degenerative change. Dictated by: Agata Barrow M.D. on 12/29/2023 at 12:16 Approved by: Agata Barrow M.D. on 12/29/2023 at 12:24
--- NOTE | 2023-12-29 13:50 | PC.NURSE ---
Attempted to get the patient to stand with the use of a walker, patient was able to stand for 2 seconds before endorsing shooting pain down his lower back and into his knee. got the patient back into bed with the help of ARELIS Ragsdale, pt only feels comfortable on his left side and needs assistance moving around in bed. Lake made aware that could not get up
[2023-12-29] MEDS: diazePAM 2 MG TABLET PO (14:26)
--- NOTE | 2023-12-29 17:51 | PM.HP.1 ---
History of Present Illness History of Present Illness Date Patient Seen: 12/29/23 Time Patient Seen: 15:51 Chief complaint: Back Pain Narrative: 63-year-old male with longstanding hx of low back pain s/p spinal surgery in august of this year who presents wt 3 days of intractable back pain. 3 days ago he was out on the [place] rowing a boat when his back started hurting and he had trouble getting back to his truck. He was visiting his parents so the next day he had an 8 hour care ride and that made the pain worse. Then, yesterday he tried to mow the lawn on his riding lawnmower and the pain worsened again. He now states that he is unable to walk 2/2 pain. He has been taking ibuprofen at home and has had some left over oxycodone that he has been using, neither of which were helpful. Of note, he did receive 100 mcg of fentanyl by EMS prior to arrival to the ER. On arrival, he was given Flexeril 10 mg, Toradol 30 mg, methylprednisolone 125 mg, diazepam 2 mg, and 3 mg of Dilaudid. Despite these medications he has had persistent pain and desires admission. X-ray shows no acute bony abnormalities and stable appearance of degenerative changes. At this time he notes pain running from the middle of the buttocks down the backside of the leg then crossing over to the front and running down the top of the knee and the cisneros on both sides. No loss of bowel or bladder function. Per pt he had a surgery on his thoracic spine, but he noted lumbar surgery to the previous provider. No surgical notes area available in the chart. He sees a spinal surgery in [place] but wasnt sure of the name or location. He states that he has not started physical therapy because he was told that he should not by his surgeon. [facility] Medical History Edema of left lower extremity Lumbar stenosis with neurogenic claudication Herniated nucleus pulposus, L3-4 right ADHD, predominantly inattentive type Obstructive sleep apnea syndrome Obesity (BMI 30-39.9) Insomnia with sleep apnea, unspecified Excessive daytime sleepiness Hypertension Abscess of anal or rectal region (05/24/03) Chronic sinusitis, unspecified (07/06/02) Joint pain of ankle and foot (09/06/03) Family History Grandfather Hypertension Snoring Diabetes mellitus Father Diabetes mellitus Hypertension Snoring Substance abuse Social History marital status: unmarried,single household members: none lives independently: Yes occupational status: previously employed Smoking Status: Former smoker alcohol intake: never Meds Home Medications and Allergies Home Medications Medication Instructions Recorded Confirmed Type hydrochlorothiazide 50 mg tablet 50 mg PO DAILY 07/14/20 04/03/23 History losartan 100 mg tablet 100 mg PO DAILY 07/14/20 04/03/23 History metoprolol tartrate 100 mg tablet 100 mg PO DAILY 07/14/20 04/03/23 History albuterol sulfate 90 mcg/actuation 2 inh inhalation Q4H PRN shortness 08/08/21 04/03/23 Rx breath activated powder inhaler of breath or wheezing #1 ea terazosin 1 mg capsule 1 mg DAILY 06/26/22 04/03/23 History amlodipine 5 mg tablet 5 mg PO DAILY 04/03/23 04/03/23 History gabapentin 300 mg capsule 300 mg PO .COMPLEX #90 caps 04/03/23 04/03/23 Rx methylprednisolone 4 mg tablets in See Rx Instructions PO PER PKG DIR 04/03/23 04/03/23 Rx a dose pack (Medrol (Paul)) radiculopathy #21 ea Allergies Allergy/AdvReac Type Severity Reaction Status Date / Time amoxicillin [From AUGMENTIN] Allergy Unknown Verified 04/03/23 16:03 clavulanic acid Allergy Unknown Verified 04/03/23 16:03 [From AUGMENTIN] erythromycin base Allergy Unknown Verified 04/03/23 16:03 [ERYTHROMYCIN BASE] Review of Systems Review of Systems Narrative: - fevers/chills + back pain - loss of bowel/bladder function + unable to ambulate due to pain (no weakness) - weight loss Exam Vital Signs (past 8 hours): - 12/29/23 10:00 12/29/23 10:00 12/29/23 10:30 Pulse Rate 65 62 Respiratory Rate 19 11 L Blood Pressure 112/59 L Pulse Oximetry 94 95 12/29/23 10:31 12/29/23 10:31 12/29/23 11:00 Pulse Rate 64 Respiratory Rate 12 Blood Pressure 107/55 L 99/53 L Pulse Oximetry 94 12/29/23 11:00 12/29/23 11:30 12/29/23 11:30 Pulse Rate 62 69 Respiratory Rate 11 L 22 Blood Pressure 109/58 L Pulse Oximetry 95 97 12/29/23 12:15 12/29/23 12:30 12/29/23 13:00 Pulse Rate 72 64 65 Respiratory Rate 14 Blood Pressure Pulse Oximetry 96 94 93 12/29/23 13:30 12/29/23 13:57 12/29/23 13:57 Pulse Rate 65 73 Respiratory Rate Blood Pressure 169/77 H Pulse Oximetry 94 96 12/29/23 14:00 12/29/23 14:00 12/29/23 14:30 Pulse Rate 72 71 Respiratory Rate Blood Pressure 151/67 H Pulse Oximetry 96 96 12/29/23 14:30 12/29/23 16:14 12/29/23 16:30 Pulse Rate 73 73 Respiratory Rate Blood Pressure 143/70 H Pulse Oximetry 93 95 12/29/23 17:00 Pulse Rate 75 Respiratory Rate Blood Pressure Pulse Oximetry 97 Oxygen Delivery Method Room Air Narrative Exam Narrative: GEN: Healthy appearing, well-developed, NAD. Upon first entering the room, pt is sleeping, snoring loudly, laying back in bed. On return later, he is laying back in bed and awake PSYCH: Good Judgment. AOx3. Normal memory, mood, and affect HEENT: -Head: NC/AT -Eyes: No discharge or redness -Nose: Normal nares. -Mouth and throat: MMM CV: warm and well perfused, RRRm no murmurs LUNGS: CTAB, no w/r/c. ABD: Soft, NT/ND, NBS, no masses or organomegaly. SKIN: Warm, well perfused. No skin rashes or abnormal lesions MSK: refuses to stand. On palpation along the spine, no tenderness, but with palpation within gluteus and in SI joint, tenderness is noted. when moving in bed ROM appears grossly normal. Skin without bruising or wasting EXT: No clubbing, cyanosis, or edema NEURO: No focal deficits Assessment & Plan Assessment and plan (1) Intractable back pain: Status: Acute (2) Herniated nucleus pulposus, L3-4 right: Status: Acute (3) Hypertension: Qualifiers: Hypertension type: unspecified Qualified Code(s): I10 - Essential (primary) hypertension Status: Chronic Assessment & Plan narrative: 63-year-old male with longstanding hx of low back pain s/p spinal surgery in august of this year being admitted to observation for intractable back pain. ## hx of L3-L4 herniated disc ## SPinal surgery, August 2023 ## intractable back pain: XR without acute changes. Suspect pain is 2/2 muscular tightening around a spine that is still healing following surgery. Discussed that a goal of being pain free is not likely within reason but a goal of tolerable pain is. WE discussed Duloxetine as a pain modulating medication and he is open to trying this. We also discussed PT for strengthening to better support the spine so that in the future, activities like mowing the lawn and rowing will hopefully not illicit such a severe response. Pt is hesitant to start PT becuase he states that he has not been cleared to do so by her spine surgeon. Will plan to call spinal surgery tomorrow. Unable to call today as pt is unsure of his name or practice location and no clinic notes/surgical notes are available in [facility]. Will hope with steroid dose and pain control over night, sx improve and he will be able to ambulate more readily. AT this time no red flag sx, weakness, bowel/bladder incontinence so will hold off on MRI but is sx worsen or fail to improve, could consider more advanced imaging - Admit to obs - add Flexeril 10mg TID - add Gabapentin 300mg TID - Add to Ibuprofen 800mg TID - increase to Acetaminophen 975mg TID - PRN oxycodone 5mg for moderate pain, increase to 10 for more severe pain - PRN Dilaudid 0.5mg for severe pain - Start Cymbalta 30mg daily Chronic home conditions: HTN: continue AMlodipine 5mg, HCTZ 50mg, Losartan 100mg, Metoprolol 100mg Fluids: PO intake Electrolytes: NA Nutrition: general diet Dispo: overnight obs DVT ppx: Mouna of 3 for mobility, SCDs in place Time-Based Coding :: [TOTAL MINUTES] spent with patient and on the chart (including review of chart, obtaining history, exam, reviewing outside data, placing orders, documenting exam and treatment plan, and counseling patient) on [DATE].
[2023-12-29] MEDS: ACETAMINOPHEN 325 MG TABLET 975 MG PO (19:36)
[2023-12-29] MEDS: IBUPROFEN 400 MG TABLET 800 MG PO (20:04)
[2023-12-29] MEDS: GABAPENTIN 300 MG CAPSULE PO (21:00)
[2023-12-30] MEDS: ACETAMINOPHEN 325 MG TABLET 975 MG PO ×3 (02:02→17:45)
[2023-12-30] MEDS: IBUPROFEN 400 MG TABLET 800 MG PO ×3 (02:03→17:49)
[2023-12-30] MEDS: OXYCODONE IR 10 MG TABLET PO ×4 (02:05→21:09)
[2023-12-30 03:57] VITALS: BP 126/66; PULSE 65; RESP 18; TEMP 36.4; O2SAT 96
--- NOTE | 2023-12-30 08:46 | PM.PN.1 ---
Subjective Subjective Date Patient Seen: 12/30/23 Time Patient Seen: 08:46 Interval history: This is a pleasant 63-year-old male whose PCP is Dr. Shultz. Patient has underlying hypertension and lumbar spine disease. He underwent a diskectomy lumbar spine in August of [address] Preet Valladares [facility] in [place]. 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 He was treated for pain and given Solu-Medrol and muscle relaxant and pain medications but due to intractable pain was admitted. He has feeling a little better but he has not gotten up to stand yet. Twelve point review of systems otherwise negative No chest pain or shortness a breath Patient is a nonsmoker Denies lightheadedness dizziness. Denies any GI changes. Patient is not having any incontinence of stool or bladder Patient is having serious pain and unable to bear weight on his right leg but is not having weakness. Patient has not done physical therapy yet since his surgery Exam Vital Signs (past 8 hours): - 12/30/23 03:57 Temperature 97.6 F Pulse Rate 65 Respiratory Rate 18 Blood Pressure 126/66 Pulse Oximetry 96 Oxygen Flow Rate 0 Oxygen Delivery Method Room Air Oxygen Flow Rate 0 Narrative Exam Narrative: Patient lying on his left side in bed eating breakfast Afebrile vital signs are stable, alert and oriented x3 HEENT unremarkable Neck is supple Chest: Clear to auscultation without wheezes rhonchi or crackles Cor: Regular rate and rhythm without murmur Abdomen: Positive bowel sounds, soft, nontender, nondistended Extremities: Right lower extremity from the knee down with atrophy. Pulses are 2+ bilaterally. Sensations intact to light touch. Straight leg raise test positive on the right. Due to patient's pain and positioning unable to do complete motor exam but no focal findings. Moves all lower extremities well without difficulty Skin: No rashes Neurologic exam nonfocal [facility] Medical History Edema of left lower extremity Lumbar stenosis with neurogenic claudication Herniated nucleus pulposus, L3-4 right ADHD, predominantly inattentive type Obstructive sleep apnea syndrome Obesity (BMI 30-39.9) Insomnia with sleep apnea, unspecified Excessive daytime sleepiness Hypertension Abscess of anal or rectal region (05/24/03) Chronic sinusitis, unspecified (07/06/02) Joint pain of ankle and foot (09/06/03) Family History Grandfather Hypertension Snoring Diabetes mellitus Father Diabetes mellitus Hypertension Snoring Substance abuse Social History marital status: unmarried,single household members: none lives independently: Yes occupational status: previously employed Smoking Status: Former smoker alcohol intake: never Assessment & Plan Assessment & Plan narrative: 63-year-old male admitted for intractable lumbar radiculopathy with surgery history 3 months ago. With improvement today but still significant pain and immobility. Patient lives alone here in and [place]. Assessment 1. Intractable back pain due to lumbar radiculopathy with concern for possible affected disc near where he had surgery. Plan: We will try to contact his surgeon today 2. Will continue with Solu-Medrol and cyclobenzaprine and pain medications. 3. Will have him work with physical therapy and pending how he does consider discharge today. Assessment 2. Hypertension Plan: Will continue with outpatient medications. Assessment 3. BPH Plan: Continue with terazosin Assessment 4. DVT prophylaxis Plan: Lovenox Time spent with patient was 56 minutes. Reviewed patient's history and notes from the clinic as well as ER and hospitalization. Discussing with nursing and pharmacy and physicians. Formulating a plan and documentation. Time-Based Coding :: [TOTAL MINUTES] spent with patient and on the chart (including review of chart, obtaining history, exam, reviewing outside data, placing orders, documenting exam and treatment plan, and counseling patient) on [DATE].
[2023-12-30] MEDS: DULOXETINE 30 MG CAPSULE PO (08:53)
[2023-12-30] MEDS: CYCLOBENZAPRINE 10 MG TABLET PO ×3 (08:53→21:10)
[2023-12-30] MEDS: GABAPENTIN 300 MG CAPSULE PO ×3 (08:53→21:10)
[2023-12-30] MEDS: AMLODIPINE 5 MG TABLET PO (09:07)
[2023-12-30] MEDS: TERAZOSIN 1 MG CAPSULE PO (09:07)
[2023-12-30 09:08] VITALS: BP 126/64; PULSE 67
[2023-12-30] MEDS: LIDOCAINE 5% PATCH 1 EACH TOP (09:08)
[2023-12-30] MEDS: LOSARTAN 50 MG TABLET 100 MG PO (09:08)
[2023-12-30] MEDS: methylPREDNISolone 125 MG/2 ML VIAL 60 MG IV ×2 (09:09→17:52)
[2023-12-30] MEDS: METOPROLOL IR 50 MG TABLET 100 MG PO (09:09)
[2023-12-30] MEDS: hydroCHLOROthiazide 25 MG TABLET 50 MG PO (09:09)
[2023-12-30] MEDS: HYDROMORPHONE 0.5 MG INJ IV ×3 (10:53→21:50)
[2023-12-30 11:11] VITALS: BP 143/81; PULSE 58; RESP 16; TEMP 36.4; O2SAT 96
[2023-12-30 11:49] LABS: Add Manual Diff / Slide Review NO; Basophils Absolute Auto 0 /uL (0-100); Basophils Percent Auto 0.1 % (0-2); Eosinophils Absolute Auto 0 /uL (0-450); Hematocrit 40.9 % (41-53); Hemoglobin 14.3 g/dL (13.5-17.5); Lymphocytes Absolute Auto 1300 /uL (1100-4500); Lymphocytes Percent Auto 9.6 % (25-40); Mean Corpuscular Hemoglobin 30.3 PG (26-34); Mean Corpuscular Volume 86.4 fL (80-100); Monocytes Absolute Auto 1000 /uL (0-900); Monocytes Percent Auto 6.8 % (3-14); Neutrophils Absolute Auto 11600 /uL (1500-7000); Neutrophils Percent Auto 83.5 % (50-75); Platelet Count 194 X10^3/uL (150-400); Red Blood Cell Count 4.73 X10^6/uL (4.5-5.9); White Blood Cell Count 13.9 X10^3/uL (4.5-11.0)
[2023-12-30 11:51] LABS: BUN Creatinine Ratio 39.4 (6-22); Blood Urea Nitrogen 37 mg/dL (9-20); Calcium 9.2 mg/dL (8.4-10.2); Carbon Dioxide 30 mmol/L (22-32); Chloride 99 mmol/L (98-107); Estimated Glomerular Filt Rate > 60 mL/min (>60); Glucose 114 mg/dL (80-110); HEMOLYSIS < 15 (0-50); Potassium 3.8 mmol/L (3.4-5.1); Sodium 136 mmol/L (137-145)
--- NOTE | 2023-12-30 16:00 | PT.IIE ---
Addendum entered and electronically signed by Ariana Mills PT 12/30/23 16:04: PT provides direct superv during SPT assessment Original Note: Current Diagnoses Essential (primary) hypertension (12/29/23) Other intervertebral disc displacement, lumbar region (12/29/23) Dorsalgia, unspecified (12/29/23) Medical History (Last Reviewed 12/29/23 @ 09:04 by Estuardo Bethea DO) Abscess of anal or rectal region (05/24/03) ADHD, predominantly inattentive type Chronic sinusitis, unspecified (07/06/02) Edema of left lower extremity Excessive daytime sleepiness Herniated nucleus pulposus, L3-4 right Hypertension Insomnia with sleep apnea, unspecified Joint pain of ankle and foot (09/06/03) Lumbar stenosis with neurogenic claudication Obesity (BMI 30-39.9) Obstructive sleep apnea syndrome Physical Therapy Inpatient Evaluation/Re-Eval M1 PT/OT-IP Prior Functional Status Start: 12/30/23 07:21 Freq: NEEDED Status: Active Protocol: Document 12/30/23 13:58 CHELY (Rec: 12/30/23 15:10 Josephine [id number]) Medical Review Prior Functional Status Medical History Reviewed Yes Diet/Fluid Consistency Regular Communication WNL Mobility and Gait I with mobility and gait. Activities of Daily Living and IADL's I, retired, likes to use his row type boat and do gardening tasks Prior Functional Level (Other details) Has a SPC at home when needed Social History Household Members none Living Arrangements Apartment/Condo Number of Floors (Floors) One Floor Number of Stairs To Enter/Railing? 2 Home Environment Tub/Shower Home Equipment Straight Cane,Grab Bars In Shower Employment Status Retired Additional Social History Comment Pt has low toilet M2 PT-IP Current Condition Start: 12/30/23 07:21 Freq: NEEDED Status: Active Protocol: Document 12/30/23 13:58 JDaisy (Rec: 12/30/23 15:10 Josephine [id number]) Physical Therapy Current Condition Current Condition Evaluation Date 12/30/23 Treatment Diagnosis Back pain M3 PT-IP Subjective Start: 12/30/23 07:21 Freq: NEEDED Status: Active Protocol: Document 12/30/23 13:58 CHELY (Rec: 12/30/23 15:10 [id number]) Subjective Physical Therapy Visit Type Type Initial Evaluation Visit Start Time 13:58 Visit Stop Time 14:25 Number of CLAIMS SUPERVISOR Visits 0 Physical Therapy Visit Comments Patient Comments Pt stated that he went out in his boat that requires rowing for locomotion after he was feeling better from surgery in August and his back began to flare up. He also did weed eating around the same time. Therapy Pain Assessment Pain When Pain Assessed At Rest Pain Present Pain Present Pain Reported Location Lower Back Intensity 7 Scale Used Numeric (0 - 10) Description Acute,Sharp,Stabbing,Throbbing ,With Movement Pain Behaviors Calling Out,Guarding,Holding Area Pain Management Techniques Apply Cold,Elevation, Modification of Treatment,Re- positioning,Timing of Activity with Medications M4 PT-IP Mobility and Gait Start: 12/30/23 07:21 Freq: NEEDED Status: Active Protocol: Document 12/30/23 13:58 CHELY (Rec: 12/30/23 15:10 [id number]) PT-Bed Mobility Assessment Rolling Type of Rolling Roll to Left Level of Assist Standby Assistance Supine to Sit Supine to Sit Standby Assistance Sit to Supine Sit to Supine Standby Assistance Scooting Scooting to Edge of Bed Standby Assistance Scooting Up and Down in Bed Standby Assistance PT-Transfer Assessment Sit to and From Stand Sit to and from Stand Minimal Assistance,1 Person Assistance,Use of Upper Extremities Equipment Transfer Assistive Device Bed Rail,Front Wheeled Walker Orthotic/Prosthetic Devices or Brace: No Transfers Transfer Destination Bed Transfer Technique STS Transfer Ability Level of Assist Minimal Assistance,1 Person Assistance,Use of Upper Extremities Comments Mobility Comments Pt requires use of bedrails for bed mobility and v/c for use of arms to push up from sidelying to sitting. Pt complained of pain during dynamic sitting and distributed weight L>R. Pt was unable to lie supine d/t pain and rolling to right and scooting were not possible for pt today. Gait Assessment Comments Gait Comments Could not tolerate gait this afternoon PT-Balance Assessment Sitting Balance and Reactions Static Sitting Balance Ability Fair Dynamic Sitting Balance Ability Fair Standing Balance and Reactions Static Standing Balance Ability Fair Dynamic Standing Balance Ability Poor Device Used FWW M5 PT-IP Objective Assessments Start: 12/30/23 07:21 Freq: NEEDED Status: Active Protocol: Document 12/30/23 13:58 CHELY (Rec: 12/30/23 15:10 [id number]) Orientation Orientation/Cognition Level of Alertness Alert Orientation Name,Age,Birthday,Month,Date, Year,Day of Week,Place, Situation Language Function Ability No Deficits Noted Safety Awareness Decreased Safety Awareness Memory Description No Deficits Noted Gross Range of Motion Upper Extremity ROM Assessment Within Functional Limits Lower Extremity ROM Assessment Right Impaired Impairments Pt limits right HS and active movement d/t pain. He tolerates a few APs in hook lying. Strength Upper Extremity Strength Assessment Within Functional Limits Comments Strength Comments R LE impaired due to pain, pt does not tolerate B MMT today d/t pain with all active movement in supine and more pain when spine is weighted with sitting and standing Sensation Assessment Sensation Gross Sensation WNL Light Touch Intact Sensation Description Numbness Comments Sensation Comments Pain distribution described as B shins and numbness with same pattern. Pt also reports posterior right leg pain with all movement and especially when spine is loaded: L4 anterior legs and L2-3 posterior right leg Muscle Tone Muscle Tone WNL Yes M6 PT-IP Treatment Start: 12/30/23 07:21 Freq: NEEDED Status: Active Protocol: Document 12/30/23 13:58 JG (Rec: 12/30/23 15:10 [id number]) Physical Therapy Treatment Exercises Exercises Ankle Pumps,Gluteal Sets,Heel Slides Education Education Provided Precautions,Safety Other Treatments Other Treatment Performed Re-ed pt on log roll technique , benefits of using AD to help unweight legs with gait, proper sleeping position with support behind back and pillow between knees, avoiding flexion and bend/twist movements like using weed eater/hedger and sitting in low boats and especially rowing, which is deep flexion and pull and twist. M7 PT-IP Assessment and Plan Start: 12/30/23 07:21 Freq: NEEDED Status: Active Protocol: Document 12/30/23 13:58 JG (Rec: 12/30/23 15:10 [id number]) PT Summary Assessment and Plan Potential Rehabilitation Potential Good Status of Condition at Evaluation Evolving Summary Impairments Pain,ROM,Strength,Balance, Sensation,Bed Mobility, Transfers,Gait,Activity Tolerance Progress Towards Goals Slow Progress due to Pain Assessment Summary Pt is a 63 y/o male who presents with back pain. Pt was given a half miligram of Dilaudid administered by nsg upon PT arrival for pain management. Pt reports having a disectomy surgery L2-3 in August and being able to return to ADL's after surgery. Pt was out rowing his boat and felt a pull in his back and was bearly able to make it back to shore and admitted himself to the hospital. Pt is currently experiencing severe back pain that is a 7/10 while supine and a 10/10 when attempting to stand. Pt offloads weight onto L side possibly to inc gapping on R vertebrae to dec pain. He cannot tolerate sitting or standing well today. He also cannot fully stand up or gait with RW with PT. Pt lives alone and is I at baseline. Pain prohibits further mobility with PT today. Goals Bed Mobility Goal Independent Transfer Goal Independent,Front Wheeled Walker Gait Goal Independent,Front Wheel Walker Gait Distance 100 Other Goals Ascend and descend 2 steps to allow safe home entry. Progress to gait with LRAD. Days to Meet Goals 5 Frequency of Treatment Frequency Of Treatment Once a Day Treatment Plan Physical Therapy Treatment Plan Bed Mobility Training,Transfer Training,Gait Training, Therapeutic Exercise,Balance Retraining,Post Op Education, Discharge Planning,Hot or Cold Pack,Neuromuscular Re-ed, Coordination Retraining,Manual Therapy Other Recommendations and Next Treatment Bed mobility training, Focus standing tolerance, work on transfers, work on putting weight into R leg. Ways to dec pain while sitting, lying down, progress gait Precautions Lumbar Precautions Log Roll,No Twisting,Limit Bending,Lifting Restriction of 10 lbs,Gait Belt above Incisional Area Other Precautions Will teach back precautions given symptoms, recent surgery Weight Bearing Status Weight Bearing Status Weight Bear as Tolerated Recommendations To Nursing Amount of Assist Needed Mechanical Lift Discharge Recommendations Other Discharge Recommendations Unable to make a good disposition recommendation today given pain limiting mobility with PT: better pain management should allow better mobility assessment/tolerance Equipment Needed for Home Before May need RW Discharge Transportation Needs at Discharge Wheelchair/Cabulance
--- NOTE | 2023-12-30 16:56 | CM.DANOTE ---
Brief DCP Assessment note Pt is a 63yo M here following intractable back pain under the care of the PCP provider group. PCP [place] Payer Eliane and self pay RICH reviewed EMR. per Chart review, pt lives alone in [place]. He was doing physical activity when his back began to hurt and he could no longer walk. He had surgery in [place] for his back August of this year. Per PT, unable to provider a good recommendation at this time due to pt's current pain levels. MAINTENANCE AND UTILITIES SUPERVISOR unable to meet with pt today due to triaging needs. Medical POC continues to unfold. P: DCP pending ability to control pain and mobility assessment and pt preference. If SNF, [place]iane auth needed. CM team will continue to follow closely. RICH Puentes Discharge Planning/Care Management CM Discharge Assessment Start: 12/30/23 16:35 Freq: Status: Active Protocol: Document 12/30/23 16:35 (Rec: 12/30/23 16:56 SL [id number]) Discharge Planning Assessment Assigned Imaging Account Manager RICH Ayoub DPOA/Assigned Designee Name gisela Wu Contact Information [phone] Advance Directives? No History Provided By Patient Prior Living Arrangements House Household Members none Independent with ADL's Yes Is patient alert and oriented? Yes Discharge Plan Home Review Status In Process Please Provide Date Initial DC 12/30/23 Assessment Was Performed Next Review Type Continued Stay Review
[2023-12-30 18:00] VITALS: BP 98/41; PULSE 58; RESP 17; TEMP 36.3; O2SAT 95
[2023-12-30 20:00] VITALS: BP 116/59; PULSE 60; RESP 18; TEMP 36.6; O2SAT 96
[2023-12-30] MEDS: SODIUM CHLORIDE 0.9% FLUSH 10 ML IV (21:10)
[2023-12-31] MEDS: methylPREDNISolone 125 MG/2 ML VIAL 60 MG IV ×3 (01:05→18:51)
[2023-12-31] MEDS: IBUPROFEN 400 MG TABLET 800 MG PO ×3 (01:06→18:53)
[2023-12-31] MEDS: ACETAMINOPHEN 325 MG TABLET 975 MG PO ×3 (01:09→18:53)
[2023-12-31 03:00] VITALS: BP 101/54; PULSE 54; RESP 20; TEMP 36.6; O2SAT 94
[2023-12-31 08:30] VITALS: BP 92/43; PULSE 65; RESP 16; O2SAT 99
[2023-12-31] MEDS: DULOXETINE 30 MG CAPSULE PO (08:52)
[2023-12-31] MEDS: GABAPENTIN 300 MG CAPSULE PO ×2 (08:52→17:14)
[2023-12-31] MEDS: CYCLOBENZAPRINE 10 MG TABLET PO ×2 (08:52→17:14)
[2023-12-31] MEDS: SODIUM CHLORIDE 0.9% FLUSH 10 ML IV (08:54)
[2023-12-31] MEDS: HYDROMORPHONE 0.5 MG INJ IV ×3 (08:59→19:51)
[2023-12-31] MEDS: LIDOCAINE 5% PATCH 1 EACH TOP (08:59)
--- NOTE | 2023-12-31 09:00 | DI.MRI.S_ITS ---
PROCEDURE: MR LUMBAR SPINE WO CON INDICATIONS: back pain, unable to walk TECHNIQUE: Noncontrast sagittal T1 spin echo and T2 fast echo, sagittal STIR, and T2 fast spin echo through the lumbar spine. In cases with scoliosis, additional coronal T2 fast spin echo may be performed. COMPARISON: [facility], MR, MR LUMBAR SPINE WO CON, 04/01/2023, 12:45. FINDINGS: Image quality: Excellent. Alignment and Curvature: There is normal bony alignment. Bone Marrow: Marrow is of normal overall signal. No acute vertebral body compression fractures. Spinal Cord: Conus medullaris terminates at the L1 level. Visualized cord demonstrates normal signal and size. Paraspinous Soft Tissues: No paravertebral masses. T12-L1: Normal appearance. L1-L2: Mild facet hypertrophy. No canal stenosis or foraminal stenosis. L2-L3: Unchanged findings. Disc bulge. Facet hypertrophy. Epidural lipomatosis. No significant canal stenosis or foraminal stenosis. L3-L4: Definite interval progression. In addition to an underlying disc bulge or disc protrusion there is a posteriorly extruded disc fragment which measures approximately 1.0 x 1.3 x 0.8 cm. It causes severe canal stenosis, significantly impinging on the thecal sac ventral surface. Reference sagittal image 9 of series 3 and axial T2 image 21 of series 7. No foraminal stenosis. L4-L5: Facet hypertrophy, prominent on the left. Posterior disc osteophyte complex, eccentric towards the left. Findings are unchanged. There is no significant central canal stenosis. There is mild right foraminal narrowing and moderate left foraminal narrowing with mild flattening deformity on the exiting left L4 nerve root. L5-S1: Prominent bilateral facet hypertrophy. No canal stenosis. Moderate left foraminal narrowing. IMPRESSION: 1. Significant progression of findings at L3-L4. There is now an extruded disc fragment in addition to the previous disc bulge/disc protrusion. It results in severe canal stenosis, significantly impinging on multiple nerve roots in the thecal sac. 2. Multilevel underlying facet arthropathy. 3. Multilevel foraminal narrowing as described above, moderate on the left at L4-L5 and L5-S1. Dictated by: Lenin Worrell M.D. on 12/31/2023 at 13:34 Approved by: Lenin Worrell M.D. on 12/31/2023 at 13:41
--- NOTE | 2023-12-31 09:15 | PT.IPTN ---
Current Diagnoses Essential (primary) hypertension (12/29/23) Other intervertebral disc displacement, lumbar region (12/29/23) Dorsalgia, unspecified (12/29/23) Physical Therapy Treatment Note M2 PT-IP Current Condition Start: 12/30/23 07:21 Freq: NEEDED Status: Active Protocol: Document 12/30/23 13:58 JG (Rec: 12/30/23 15:10 JG [id number]) Physical Therapy Current Condition Current Condition Evaluation Date 12/30/23 Treatment Diagnosis Back pain M3 PT-IP Subjective Start: 12/30/23 07:21 Freq: NEEDED Status: Active Protocol: Document 12/31/23 09:31 TS (Rec: 12/31/23 09:43 TS [id number]) Subjective Physical Therapy Visit Type Type Treatment Note Visit Start Time 09:15 Visit Stop Time 09:29 Number of HEELER MACHINE Visits 1 Physical Therapy Visit Comments Patient Comments Pt reports high pain when moving, he is to have an MRI later this morning. Therapy Pain Assessment Pain When Pain Assessed At Rest Pain Present Pain Present Pain Reported M4 PT-IP Mobility and Gait Start: 12/30/23 07:21 Freq: NEEDED Status: Active Protocol: Document 12/31/23 09:31 TS (Rec: 12/31/23 09:43 TS [id number]) PT-Bed Mobility Assessment Rolling Type of Rolling Roll to Left Level of Assist Standby Assistance Supine to Sit Supine to Sit Standby Assistance Sit to Supine Sit to Supine Standby Assistance Scooting Scooting to Edge of Bed Standby Assistance Scooting Up and Down in Bed Standby Assistance PT-Transfer Assessment Comments Mobility Comments Pt performed logroll to L side SBA with single UE support. Pt sat EOB SBA, did not progress into standing due to pain. Sit to supine into bed SBA. Pt was educated on body mechanics for lifting. Pt was left in bed, all needs met. PT-Balance Assessment Sitting Balance and Reactions Static Sitting Balance Ability Fair Dynamic Sitting Balance Ability Fair M5 PT-IP Objective Assessments Start: 12/30/23 07:21 Freq: NEEDED Status: Active Protocol: Document 12/30/23 13:58 JG (Rec: 12/30/23 15:10 JG [id number]) Orientation Orientation/Cognition Level of Alertness Alert Orientation Name,Age,Birthday,Month,Date, Year,Day of Week,Place, Situation Language Function Ability No Deficits Noted Safety Awareness Decreased Safety Awareness Memory Description No Deficits Noted Gross Range of Motion Upper Extremity ROM Assessment Within Functional Limits Lower Extremity ROM Assessment Right Impaired Impairments Pt limits right HS and active movement d/t pain. He tolerates a few APs in hook lying. Strength Upper Extremity Strength Assessment Within Functional Limits Comments Strength Comments R LE impaired due to pain, pt does not tolerate B MMT today d/t pain with all active movement in supine and more pain when spine is weighted with sitting and standing Sensation Assessment Sensation Gross Sensation WNL Light Touch Intact Sensation Description Numbness Comments Sensation Comments Pain distribution described as B shins and numbness with same pattern. Pt also reports posterior right leg pain with all movement and especially when spine is loaded: L4 anterior legs and L2-3 posterior right leg Muscle Tone Muscle Tone WNL Yes M6 PT-IP Treatment Start: 12/30/23 07:21 Freq: NEEDED Status: Active Protocol: Document 12/31/23 09:31 TS (Rec: 12/31/23 09:43 TS [id number]) Physical Therapy Treatment Education Education Provided Precautions,Safety M7 PT-IP Assessment and Plan Start: 12/30/23 07:21 Freq: NEEDED Status: Active Protocol: Document 12/31/23 09:31 TS (Rec: 12/31/23 09:43 TS [id number]) PT Summary Assessment and Plan Potential Rehabilitation Potential Good Summary Impairments Pain,ROM,Strength,Balance, Sensation,Bed Mobility, Transfers,Gait,Activity Tolerance Progress Towards Goals Slow Progress due to Pain Assessment Summary Anthony continues to make slow progress with his mobility. He is SBA for all bed mobility and demonstrates good carryover of techniques. He did not progress into standing this session due to pain. If pt's pain improves while in hospital pt may be appropriate for home with assist. Goals Bed Mobility Goal Independent Transfer Goal Independent,Front Wheeled Walker Gait Goal Independent,Front Wheel Walker Gait Distance 100 Other Goals Ascend and descend 2 steps to allow safe home entry. Progress to gait with LRAD. Days to Meet Goals 5 Frequency of Treatment Frequency Of Treatment Once a Day Treatment Plan Physical Therapy Treatment Plan Bed Mobility Training,Transfer Training,Gait Training, Therapeutic Exercise,Balance Retraining,Post Op Education, Discharge Planning,Hot or Cold Pack,Neuromuscular Re-ed, Coordination Retraining,Manual Therapy Other Recommendations and Next Treatment Bed mobility training, Focus standing tolerance, work on transfers, work on putting weight into R leg. Ways to dec pain while sitting, lying down, progress gait Precautions Lumbar Precautions Log Roll,No Twisting,Limit Bending,Lifting Restriction of 10 lbs,Gait Belt above Incisional Area Weight Bearing Status Weight Bearing Status Weight Bear as Tolerated Recommendations To Nursing Amount of Assist Needed Mechanical Lift Discharge Recommendations Other Discharge Recommendations Unable to make a good disposition recommendation today given pain limiting mobility with PT: better pain management should allow better mobility assessment/tolerance Equipment Needed for Home Before May need RW Discharge Transportation Needs at Discharge Wheelchair/Cabulance
[2023-12-31] MEDS: OXYCODONE IR 10 MG TABLET PO ×2 (11:16→17:15)
[2023-12-31] MEDS: LORazepam 2 MG/ML INJ 1 MG IV (12:05)
[2023-12-31 12:55] VITALS: BP 99/42; PULSE 64; RESP 18
--- NOTE | 2023-12-31 13:22 | P.PN_ITS ---
Subjective Subjective Date Patient Seen: 12/31/23 Time Patient Seen: 13:22 Interval history: This is a very pleasant 63-year-old male who is now on hospital exam are 3 for intractable lumbar radiculopathy. Patient states that the pain medication is giving him good relief but he still is continuing to have severe pain and difficulty with movement and making progress with physical therapy due to right radicular pain. He has not had a bowel movement several days He is urinating normally He just had MRI and the results are pending He is not having any loss of bowel or bladder function. Patient slept well last night. Patient denies chest pain or shortness of breath Patient is tolerating p.o. diet without any difficulties. Otherwise 12 point review of systems is negative Exam Vital Signs (past 8 hours): - 12/31/23 08:30 12/31/23 12:55 Pulse Rate 65 64 Respiratory Rate 16 18 Blood Pressure 92/43 L 99/42 L Pulse Oximetry 99 Oxygen Flow Rate 0 Oxygen Delivery Method Room Air Oxygen Flow Rate 0 Narrative Exam Narrative: Afebrile but vital signs are stable except for low blood pressure in the 90s over 40s HEENT unremarkable. Patient is alert and oriented no apparent distress. He is laying on his left side in the hospital bed. Neck: Supple Chest: Clear to auscultation without wheezes rhonchi or crackles Cor: Regular rate and rhythm without murmur Abdomen: Positive bowel sounds, soft, nontender, no hepatosplenomegaly Extremities no edema pulses intact. Patient with severe pain over L4-5 L5-S1 over the vertebral bodies and mainly the right paravertebral muscles. Patient also with pain in to buttocks. Sensations intact to light touch. Testing of motor strength is difficult due to patient's pain. He really can not try flexion extension of the leg or at the hip due to pain There is no rashes No focal neurologic symptoms other than really unable to test the lower extremities strength bilaterally because the pain Objective Labs 12/30/23 11:27 12/30/23 11:27 [facility] Medical History Edema of left lower extremity Lumbar stenosis with neurogenic claudication Herniated nucleus pulposus, L3-4 right ADHD, predominantly inattentive type Obstructive sleep apnea syndrome Obesity (BMI 30-39.9) Insomnia with sleep apnea, unspecified Excessive daytime sleepiness Hypertension Abscess of anal or rectal region (05/24/03) Chronic sinusitis, unspecified (07/06/02) Joint pain of ankle and foot (09/06/03) Family History Grandfather Hypertension Snoring Diabetes mellitus Father Diabetes mellitus Hypertension Snoring Substance abuse Social History marital status: unmarried,single household members: none lives independently: Yes occupational status: previously employed Smoking Status: Former smoker alcohol intake: never Assessment & Plan Assessment & Plan narrative: 63-year-old male hospital day 3. For intractable back pain with right lumbar radiculopathy with history of diskectomy in August of 2023. Suspect that this episode was precipitated by weed eating and rowing a boat and then driving to [place] and back and then getting on a riding lawnmower in the span of a 2 week period of time. Assessment 1. Lumbar radiculopathy with intractable back pain Plan: MRI is pending Continue with physical therapy. Patient is making slow progress Continue with pain medications, muscle relaxants and IV Solu-Medrol. Pending results of MRI will consider ortho consult. Due to patient being slow to improve with PT. Continue with ice and other modalities. Patient started on duloxetine on admit we will continue. Patient is on gabapentin we will continue this as well. Assessment 2. DVT prophylaxis Plan: Continue Assessment 3. Leukocytosis on labs yesterday suspect related to steroids. Plan: Recheck tomorrow and continue to monitor. No evidence of infection at this time. Assessment 4. Hypotension. Suspect related to narcotics. Antihypertensives were held. Will continue to monitor closely. Will check labs in a.m. check kidneys and CBC. Will spread out and decrease the amount of narcotic pain medications Assessment 5. Constipation Plan: Will start Colace, senna typical bowel agents Assessment 6. BPH. No current issues. Plan: Continue with terazosin Time spent with patient was 55 minutes. Reviewed patient's history and notes from the clinic as well as ER and hospitalization. Discussing with nursing and pharmacy and physicians. Formulating a plan and documentation. Time-Based Coding :: [TOTAL MINUTES] spent with patient and on the chart (including review of chart, obtaining history, exam, reviewing outside data, placing orders, documenting exam and treatment plan, and counseling patient) on [DATE].
[2023-12-31 14:24] VITALS: BP 99/43; PULSE 62; RESP 18
--- NOTE | 2023-12-31 15:05 | CM.DPNOTE ---
DCP Note SASH STICKER reviewed EMR. Per PT note, pt remains in too much pain to participate in therapy at this time. Per UR RN, pt's MRI today found a piece of disk was broken off in his back. He has spinal cord compression from two different disks. Per UR RN, pt was changed to INPT. Per nursing staff, it is likely he will need surgery again prior to dc. SASH STICKER attempted to meet with ptx2, sleeping soundly. P: Medical POC continues to unfold. If SNF, will need [place] auth. Follow closely. Wendi Vogt, RICH
--- NOTE | 2023-12-31 17:41 | PM.PN.1 ---
Subjective Subjective Date Patient Seen: 12/31/23 Time Patient Seen: 17:42 Interval history: No changes throughout the course of the day. Exam Vital Signs (past 8 hours): - 12/31/23 12:55 12/31/23 14:24 Pulse Rate 64 62 Respiratory Rate 18 18 Blood Pressure 99/42 L 99/43 L Oxygen Delivery Method Room Air Oxygen Flow Rate 0 Narrative Exam Narrative: Exam unchanged from previous note today Blood pressure improved slightly Alert and oriented x3 Objective Labs 12/30/23 11:27 12/30/23 11:27 [facility] Medical History Edema of left lower extremity Lumbar stenosis with neurogenic claudication Herniated nucleus pulposus, L3-4 right ADHD, predominantly inattentive type Obstructive sleep apnea syndrome Obesity (BMI 30-39.9) Insomnia with sleep apnea, unspecified Excessive daytime sleepiness Hypertension Abscess of anal or rectal region (05/24/03) Chronic sinusitis, unspecified (07/06/02) Joint pain of ankle and foot (09/06/03) Family History Grandfather Hypertension Snoring Diabetes mellitus Father Diabetes mellitus Hypertension Snoring Substance abuse Social History marital status: unmarried,single household members: none lives independently: Yes occupational status: previously employed Smoking Status: Former smoker alcohol intake: never Assessment & Plan Assessment & Plan narrative: 63-year-old male admitted for intractable back pain with previous lumbar diskectomy in August of 2023. Patient with no significant improvement despite maximizing medication therapy with muscle relaxants, Solu-Medrol, pain medications, physical therapy, ice. Therefore repeat MRI was performed and most notable for. Significant progression of findings at L3-L4. There is now an extruded disc fragment in addition to the previous disc bulge/disc protrusion. It results in severe canal stenosis, significantly impinging on multiple nerve roots in the thecal sac. Discussed the case for Dr. Saucedo who was on-call for patient's neurosurgeon, Dr. Torre who reviewed the MRI and recommend surgical intervention. Plan is for transfer to [facility] to patient's operating surgeon. I am awaiting call from hospitalist. Patient has failed conservative treatment. Patient is unable to bear weight. Assessment 2. Hypertension with current hypotension I think related to narcotic pain medications. Plan: Will repeat CBC and CMP. We will continue holding antihypertensives and reduce the narcotic pain medications Another 45 minutes was spent with patient today discussing with Neurosurgery, nursing and meeting with patient and arranging for transfer Time-Based Coding :: [TOTAL MINUTES] spent with patient and on the chart (including review of chart, obtaining history, exam, reviewing outside data, placing orders, documenting exam and treatment plan, and counseling patient) on [DATE].
[2023-12-31] MEDS: DOCUSATE 100 MG CAPSULE PO (18:54)
--- NOTE | 2023-12-31 19:53 | PC.NURSE ---
MD Gonzalez at bedside this afternoon to discuss results of MRI, informed patient of need to transport pt to [facility] for surgery. Patient is agreeable and knowledgeable with plan.Patient report given to Guilherme at [phone] ext [phone]. EMS arrived at 1950 to transport patient via stretcher. Transported with all belongings and packet.
== END 2023-12-31 20:00 | disposition short-term general hospital (02) ==
LOC: ED 12:17 → AC 15:21
PROVIDERS: Admitting Provider Family Medicine; Emergency Provider Emergency Medicine; Family Provider Family Medicine; PCP Family Medicine; Referring Provider Emergency Medicine; Visit Provider Family Medicine
DX: M51.16 Intervertebral disc disorders with radiculopathy, lumbar region (principal); I10 Essential (primary) hypertension; N40.0 Benign prostatic hyperplasia without lower urinary tract symptoms; K59.00 Constipation, unspecified; I95.9 Hypotension, unspecified; M48.061 Spinal stenosis, lumbar region without neurogenic claudication; Z98.890 Other specified postprocedural states; Z87.891 Personal history of nicotine dependence
CPT/HCPCS: 36415; 72100; 72148; 80048; 85025; 96374; 96375; 96376; 97161; 97530; 97535; 99284; G0378; A9270; J1170; J1885; J2060; J2919

== ENCOUNTER 2024-03-02 17:54 | Emergency (ER) | payer OTHER, SELFPAY ==
[2023-12-29 20:34] VITALS: BMI 33.3
[2024-03-02 18:14] VITALS: BP 137/83; PULSE 76; RESP 16; TEMP 35.9; O2SAT 97; BMI 34.0
--- NOTE | 2024-03-02 19:27 | ED_ITS ---
HPI - Wound/Laceration General Chief Complaint: Wound/Laceration Stated Complaint: rt leg lac, needs stitches Time Seen by Provider: 03/02/24 19:20 Source: patient Mode of arrival: Family Vehicle History of Present Illness HPI narrative: 64-year-old male presents for evaluation of right leg laceration. Patient states that he was walking through his y[place] when his foot accidentally hit a nail sticking out of the fence post, sustaining a laceration to his right leg. Patient unable to recall when his last tetanus vaccine was administered. Related Data Home Medications Medication Instructions Recorded Confirmed hydrochlorothiazide 50 mg tablet 50 mg PO DAILY 07/14/20 12/29/23 losartan 100 mg tablet 100 mg PO DAILY 07/14/20 12/29/23 metoprolol tartrate 100 mg tablet 100 mg PO DAILY 07/14/20 12/29/23 terazosin 1 mg capsule 1 mg DAILY 06/26/22 12/29/23 amlodipine 5 mg tablet 5 mg PO DAILY 04/03/23 12/29/23 Previous Rx's Medication Instructions Recorded albuterol sulfate 90 mcg/actuation 2 inh inhalation Q4H PRN shortness 08/08/21 breath activated powder inhaler of breath or wheezing #1 ea gabapentin 300 mg capsule 300 mg PO .COMPLEX #90 caps 04/03/23 methylprednisolone 4 mg tablets in See Rx Instructions PO PER PKG DIR 04/03/23 a dose pack (Medrol (Paul)) radiculopathy #21 ea Allergies Allergy/AdvReac Type Severity Reaction Status Date / Time amoxicillin [From AUGMENTIN] Allergy Unknown Verified 04/03/23 16:03 clavulanic acid Allergy Unknown Verified 04/03/23 16:03 [From AUGMENTIN] erythromycin base Allergy Unknown Verified 04/03/23 16:03 [ERYTHROMYCIN BASE] Patient History Medical History Edema of left lower extremity Lumbar stenosis with neurogenic claudication Herniated nucleus pulposus, L3-4 right ADHD, predominantly inattentive type Obstructive sleep apnea syndrome Obesity (BMI 30-39.9) Insomnia with sleep apnea, unspecified Excessive daytime sleepiness Hypertension Abscess of anal or rectal region (05/24/03) Chronic sinusitis, unspecified (07/06/02) Joint pain of ankle and foot (09/06/03) Family History Grandfather Hypertension Snoring Diabetes mellitus Father Diabetes mellitus Hypertension Snoring Substance abuse Social History marital status: unmarried,single household members: none lives independently: Yes occupational status: previously employed Smoking Status: Former smoker alcohol intake: never Smoking Status: Former smoker Substance Use Type: marijuana Exam Initial Vital Signs Initial Vital Signs: Vital Signs Temperature 96.7 F L 03/02/24 18:14 Pulse Rate 76 03/02/24 18:14 Respiratory Rate 16 03/02/24 18:14 Blood Pressure 137/83 03/02/24 18:14 Pulse Oximetry 97 03/02/24 18:14 Oxygen Delivery Method Room Air 03/02/24 18:14 Const: Awake, alert, no acute distress, nontoxic appearing MSK: No deformity, full range of motion, pulses equal Skin: Warm, Dry, 2.5cm laceration to medial R calf with overlying flap of non- perfusing skin Neuro: AO x3, CN II-XII grossly intact, moves all extremities Course Orders Ordered: Discontinued Medications Diphtheria/Tetanus/Acell Pertussis (Tet,Diph,Pertuss(Acell),Vac/Pf 0.5 Ml Syringe) 0.5 ml IM .ONCE ONE Stop: 03/02/24 19:24 Last Admin: 03/02/24 19:32 Dose: 0.5 ml Documented By: Vital Signs Vital signs: Vital Signs - 8 hr 03/02/24 18:14 03/02/24 19:43 Temperature 96.7 F L Pulse Rate 76 85 Respiratory Rate 16 18 Blood Pressure 137/83 148/94 H Pulse Oximetry 97 99 Oxygen Delivery Method Room Air Room Air MDM - Wound/Laceration Differential Diagnosis Differential diagnosis: Likely laceration, abscess and abrasion MDM Narrative Medical decision making narrative: Accidental laceration to medial right calf. Unfortunately the overlying flap of skin appears to be avascular and already shows signs of scabbing over. The remaining laceration not amenable to sutures as it would placed too much tension on the skin. Wound irrigated copiously by nursing staff, dressings applied. Tetanus vaccine administered. Wound care instructions discussed at bedside with patient and his significant other. Additional dressing supplies sent home. ED return precautions discussed. Discharge Plan Departure Patient Disposition: Home Clinical Impression: Laceration of leg Instructions: DI for Minor Laceration Activity Restrictions/Additional Instructions: UNFORTUNATELY THE SKIN OVER YOUR LACERATION ALREADY APPEARS TO BE IN THE PROCESS OF DYING AND THERE WAS NO AVAILABLE SKIN FOR ME TO SUTURE. KEEP YOUR WOUND CLEAN AND DRY. KEEP IT COVERED WHEN YOU ARE OUT IN ABOUT OR WORKING IN THE YARD. IF YOU NOTICE UNUSUAL REDNESS, DRAINAGE, SWELLING PLEASE RETURN FOR REPEAT EVALUATION. Prescriptions: No Action terazosin 1 mg capsule 1 mg DAILY albuterol sulfate 90 mcg/actuation aerosol powdr breath activated 2 inh INHALATION Q4H PRN (Reason: shortness of breath or wheezing) Qty: 1 0RF Rx Instructions: administer with spacer amlodipine 5 mg tablet 5 mg PO DAILY gabapentin 300 mg capsule 300 mg PO .COMPLEX Qty: 90 2RF Rx Instructions: 1-2 PO Tid to begin at HS and titrate to pain relief methylprednisolone [Medrol (Paul)] 4 mg tablets,dose pack See Rx Instructions PO PER PKG DIR Qty: 21 0RF Rx Instructions: PO PER PKG DIR metoprolol tartrate 100 mg tablet 100 mg PO DAILY hydrochlorothiazide 50 mg tablet 50 mg PO DAILY losartan 100 mg tablet 100 mg PO DAILY Referrals: Guilherme Shultz MD [Primary Care Provider] - Stand Alone Forms: Patient Portal/API
[2024-03-02] MEDS: TET,DIPH,PERTUSS(ACELL),VAC/PF 0.5 ML SYRINGE IM (19:32)
[2024-03-02 19:43] VITALS: BP 148/94; PULSE 85; RESP 18; O2SAT 99
== END 2024-03-02 19:48 | disposition home or self-care (01) ==
PROVIDERS: Emergency Provider Emergency Medicine; Family Provider Family Medicine; PCP Family Medicine
DX: S81.811A Laceration without foreign body, right lower leg, initial encounter (principal); Z23 Encounter for immunization; W45.0XXA Nail entering through skin, initial encounter
CPT/HCPCS: 90471; 99283; 90715